=== PATIENT | female | born 1960 | race Caucasian/White ===

== ENCOUNTER 2018-08-26 14:30 | Outpatient (CLI) | payer OTHER ==
[~2018-08-26] VITALS: Ht 162.6 cm; Wt 119.7 kg
[2018-08-26] MEDS ORDERED: LISI-552 PO (14:44)
[2018-08-26] MEDS ORDERED: METF-397 PO (14:44)
[2018-08-26] MEDS ORDERED: PRAV40TA2 PO (14:44)
== END 2018-08-26 14:54 | disposition home or self-care (01) ==
LOC: PREOP 14:30
PROVIDERS: ATTEND Surgery
DX: Z01.818 Encounter for other preprocedural examination (principal)

== ENCOUNTER 2018-08-31 09:17 | Day surgery (SDC) | payer BC, OTHER ==
[~2018-08-31] VITALS: Ht 162.6 cm; Wt 119.7 kg
[~2018-08-31 09:17] MED LIST: LISI-552 PO; METF-397 PO; PRAV40TA2 PO
--- OUTSIDE RECORDS SUMMARY | 2018-08-31 09:21 | XMS REPORT ---
Author Author [facility] Address [address] [place] [address] Care Team Providers Care Trolley Operator Name Role Phone ROBIN RIVEROHANY Unavailable PROBLEMS Type Condition ICD9-CM Code OCU65-NA Code Onset Dates Condition Status SNOMED Code Problem Essential hypertension I10 Active 18538799 Problem Allergic rhinitis, unspecified allergic rhinitis type J30.9 Active 96861412 Problem BMI 45.0-49.9, adult Z68.42 Active 035089404 Problem Acute right-sided low back pain with right-sided sciatica M54.41 Active 642671837 Problem Mixed hyperlipidemia E78.2 Active 363059616 Problem Prediabetes R73.09 Active 4134500 Problem Occult blood positive stool R19.5 Active 16853891 Problem Primary osteoarthritis of left knee M17.12 Active 862795019 ALLERGIES Substance Reaction Event Type Date Status Aspirin Unknown Drug Allergy Nov, Active ENCOUNTERS Encounter Location Date Diagnosis [place] [id number] [place] [address] Nov, Eustachian tube dysfunction, bilateral H69.83 [facility] [id number] [address] Nov, Eustachian tube dysfunction, bilateral H69.83 [facility] [address] [id number], [place] [address] Nov, Occult blood positive stool R19.5 ; Mixed hyperlipidemia E78.2 ; Essential hypertension I10 ; Prediabetes R73.09 and BMI 45.0-49.9, adult Z68.42 [facility] [address] [id number], [place] [address] 9[address] September, Essential hypertension I10 [place] [address] [place] [id number] [place] [address] 83947- 5069 Apr, Essential hypertension I10 ; Mixed hyperlipidemia E78.2 ; Prediabetes R73.09 ; Occult blood positive stool R19.5 and BMI 40.0-44.9, adult Z68.41 [place] [address] [place] [id number] [place] [address]21- 1291 Dec, Acute right-sided low back pain with right-sided sciatica M54.41 [place] [address] [address]- [address] Nov, Essential hypertension I10 [address] [address]- [address] Aug, Essential hypertension I10 ; Mixed hyperlipidemia E78.2 ; Prediabetes R73.09 ; BMI 40.0-44.9, adult Z68.41 ; Weight loss counseling, encounter for Z71.3 and Occult blood positive stool R19.5 [place] [address] [address]- 48[address] Jul, Eustachian tube dysfunction, bilateral H69.[address] [address]- [address] Apr, Well woman exam with routine gynecological exam Z01.[address] [address]- 9316 Mar, [address] [address]- 8802 17 Mar, 2016 Essential hypertension I10 ; Mixed hyperlipidemia E78.2 and Screening for colon cancer Z12.[address] [address]- 1423 14 Mar, 2016 Essential hypertension I10 ; Mixed hyperlipidemia E78.2 and Screening for colon cancer Z12.11 [place] [address] [place] [id number] [place] [address] 29510- 0364 26 Jul, 2015 Essential hypertension I10 ; Acute maxillary sinusitis, recurrence not specified J01.00 ; Mixed hyperlipidemia E78.2 and Allergic rhinitis, unspecified allergic rhinitis type J30.9 [place] [address] [place] [id number] [place] [address] 23621- 9301 May, [place] [address] [address]- 0396 May, Ingrowing right great toenail L60.0 [place] [address] 608[address]- 8916 Apr, Ingrown nail L60.0 [place] [address] 524[address]- 5179 Mar, Ingrowing toenail with infection L60.0 [place] [address] [place] [id number] [place] [address] 98686- 6215 Jan, Hypercalcemia 275.[address] [address]- 0445 Dec, Hypercalcemia 275.42 [place] [address] 98656- 5383 Dec, Acute renal insufficiency 593.9 [place] [address] [place] [id number] [place] [address] 60228- 3934 Nov, [place] [id number] [place] [address] 19899- 5707 Nov, Acute renal insufficiency 593.9 and Prediabetes 790.29 [place] [id number] [place] [address] 79026- 1199 Nov, Other and unspecified hyperlipidemia 272.4 and Essential hypertension, benign 401.1 [place] [id number] [place] [address] 19017- 8571 Oct, Dysuria 788.1 ; Osteoarthritis of left knee 715.96 ; Hyperlipidemia 272.4 ; Essential hypertension, benign 401.1 and Urinary tract infection 599.0 [place] [address], [place] [address] Oct, [facility] [address], [place] [address]- 34[address] 15 Oct, 2014 Other and unspecified hyperlipidemia 272.4 and Essential hypertension, benign 401.1 [facility] [address], [place] [address] 10[address] 14 Aug, 2014 [facility] [address] [facility] [id number], [place] [address] 7434 13 Aug, 2014 [facility] [address] [place] [address] 8440 Jul, [facility] [address], [place] [address] 6[address] Jul, [facility] [address], [place] [address]- 8198 16 Jul, 2014 [facility] [address], [place] [address]- 7890 Jul, [facility] [address], [place] [address]- 4176 Jul, [facility] [address], [place] [address]- 4546 Jul, [facility] [address], [place] [address]- 6682 Jun, [facility] [id number], [place] [address]- 4567 Jun, [facility] [id number], [place] [address]- 0494 May, [facility] [address] [place] [address]- 6809 May, [facility] [id number] [place] [address]- 1786 May, [facility] [place] [facility] [address] [id number] [place] [address]- 0043 May, [facility] [place] [facility] [address] [id number] [place] [address]- 9349 Nov, [facility] [place] [facility] [address] [id number] [place] [address]- 6587 Nov, [facility] [place] [facility] [address] [id number] [place] [address]- 7190 Oct, [facility] [place] [facility] [address] [id number] [place] [address]- 0287 Oct, [facility] [place] [facility] [address] [id number] [place] [address]- 4633 September, [facility] [place] [facility] [address] [id number] [place] [address]- 7403 September, [facility] [place] [facility] [address] [id number] [place] [address]- 8215 September, [facility] [place] [facility] [address] [id number] [place] [address] September, [facility] [place] [facility] [address] [id number] [place] [address]- 5184 September, [facility] [place] [facility] [address] [id number] [place] [address] September, [facility] [place] [facility] [address] [id number] [place] [address]- 6610 September, [facility] [place] [facility] [address] [id number] [place] [address]- 9536 Aug, [facility] [place] [facility] [address] [id number] [place] [address] Aug, [facility] [place] [facility] [address] [id number] [place] [address]- 7269 Aug, [facility] [place] [facility] [address] [id number] [place] [address]- 3944 Aug, [facility] [address] [facility] [id number] [place] [address]- 2420 Aug, [facility] [address] [facility] [id number] [place] [address]- 8447 Aug, [facility] [address] [facility] [id number] [place] [address]- 7342 May, [facility] [address] [facility] [id number] [place] [address]- 9323 May, [facility] [address] [facility] [id number] [place] [address]- 3346 May, [facility] [address] [facility] [id number] [place] [address]- 2517 May, [facility] [id number] [place] [address]- 9541 May, [facility] [address] [facility] [id number], [place] [address]- 7106 May, [facility] [id number], [place] [address]- 9716 Jan, [facility] [address] [facility] [id number], [place] [address]- 7398 Jan, [facility] [address] [facility] [id number], [place] [address]- 8140 Dec, [facility] [address] [facility] [id number], [place] [address]- 5450 Nov, [facility] [address] [facility] [id number], [place] [address]- 4550 Nov, [facility] [address] [facility] [id number], [place] [address]- 3589 Nov, [facility] [address] [facility] [id number], [place] [address]- 8340 Nov, IMMUNIZATIONS No Known Immunizations SOCIAL HISTORY Never Assessed REASON FOR VISIT Blood Pressure--tcuppettRN PLAN OF CARE Activity Details Follow Up 6 Months Reason:HTN VITAL SIGNS Height 65 in 2017-12-18 Weight 273.6 lbs 2017-12-18 Temperature 98.4 degrees Fahrenheit 2017-12-18 Heart Rate 80 bpm 2017-12-18 Respiratory Rate 20 2017-12-18 BMI 45.52 kg/m2 2017-12-18 Blood pressure systolic 128 mmHg 2017-12-18 Blood pressure diastolic 84 mmHg 2017-12-18 MEDICATIONS Medication Instructions Dosage Frequency Start Date End Date Duration Status Pravastatin Sodium 40 mg Orally Once a day 1 tablet 24h 90 days Active Flonase 50 MCG/DOSE Nasally 2 times a day 1 spray in each nostril 12h Active Lisinopril-Hydrochlorothiazide 20-25 MG Orally Once a day 1 tablet 24h 90 days Active Metformin HCl 500 mg Orally 2 times a day 1 tablet with a meal 12h Nov, 30 day(s) Active Cetirizine HCl 10 MG Orally Once a day 1 tablet 24h 30 Not-Taking RESULTS No Results PROCEDURES Procedure Date Ordered Result Body Site COMPREHEN METABOLIC PANEL December 18, 2017 LIPID PANEL December 18, 2017 COMPLETE CBC W/AUTO DIFF WBC December 18, 2017 INSTRUCTIONS MEDICATIONS ADMINISTERED No Known Medications MEDICAL (GENERAL) HISTORY Type Description Date Medical History respiratory disorder-chronic cough Surgical History tonsillectomy 1967 Surgical History tubal ligation 1982 Surgical History dental surgery-teeth removed 1985 Surgical History hysterectomy 1995 Surgical History arthroscopic knee surgery-left knee 1997 Surgical History neuroplasty with transposition of median nerve at carpal tunnel 1995, 1998 Surgical History cholecystectomy Surgical History Left hand trigger finger release 11/2015 Hospitalization History Hospitalization for surgery only
--- OUTSIDE RECORDS SUMMARY | 2018-08-31 09:21 | XMS REPORT ---
Author Author [facility] Address [address] [place] [address] Care Team Providers Care Sales Product Specialist Name Role Phone WEST RIVERO Unavailable PROBLEMS Type Condition ICD9-CM Code SEY62-KW Code Onset Dates Condition Status SNOMED Code Problem Essential hypertension I10 Active 25166753 Problem Allergic rhinitis, unspecified allergic rhinitis type J30.9 Active 61649504 Problem BMI 45.0-49.9, adult Z68.42 Active 617921841 Problem Acute right-sided low back pain with right-sided sciatica M54.41 Active 059499166 Problem Mixed hyperlipidemia E78.2 Active 767761110 Problem Prediabetes R73.09 Active 2599299 Problem Occult blood positive stool R19.5 Active 43803240 Problem Primary osteoarthritis of left knee M17.12 Active 207009033 ALLERGIES No Information ENCOUNTERS Encounter Location Date Diagnosis [place] [address] [address] Nov, Eustachian tube dysfunction, bilateral H69.83 [place] [address] [place] [id number] [place] [address] 62075- 7612 Nov, Eustachian tube dysfunction, bilateral H69.83 [place] [address] [place] [id number] [place] [address] 14072- 2913 Nov, Occult blood positive stool R19.5 ; Mixed hyperlipidemia E78.2 ; Essential hypertension I10 ; Prediabetes R73.09 and BMI 45.0-49.9, adult Z68.42 [facility] [id number] [place] [address] 26498- 5213 September, Essential hypertension I10 [place] [address] [address]- 0461 Apr, Essential hypertension I10 ; Mixed hyperlipidemia E78.2 ; Prediabetes R73.09 ; Occult blood positive stool R19.5 and BMI 40.0-44.9, adult Z68.41 [place] [id number] [place] [address] 09138- 8874 Dec, Acute right-sided low back pain with right-sided sciatica M54.41 [place] [address] [address]- 9721 Nov, Essential hypertension I10 [place] [address] 18842- 9434 Aug, Essential hypertension I10 ; Mixed hyperlipidemia E78.2 ; Prediabetes R73.09 ; BMI 40.0-44.9, adult Z68.41 ; Weight loss counseling, encounter for Z71.3 and Occult blood positive stool R19.[address] [address]- 6978 Jul, Eustachian tube dysfunction, bilateral H69.[address] 94[address]- 8950 Apr, Well woman exam with routine gynecological exam Z01.419 [place] [id number] [place] [address] 14417- 0329 Mar, [address] [address]- 6294 Mar, Essential hypertension I10 ; Mixed hyperlipidemia E78.2 and Screening for colon cancer Z12.11 [place] [address] [place] [address] [id number] [place] [address] 75897- 9322 14 Mar, 2016 Essential hypertension I10 ; Mixed hyperlipidemia E78.2 and Screening for colon cancer Z12.11 [place] [address] [place] [id number] [place] [address] 07249- 4652 26 Jul, 2015 Essential hypertension I10 ; Acute maxillary sinusitis, recurrence not specified J01.00 ; Mixed hyperlipidemia E78.2 and Allergic rhinitis, unspecified allergic rhinitis type J30.9 [place] [address] [place] [id number] [place] [address] 66217- 3694 May, [place] [address] [place] [id number] [place] [address] 49566- 5897 May, Ingrowing right great toenail L60.0 [place] [address] [address]45- 8525 Apr, Ingrown nail L60.0 [place] [address] [place] [id number] [place] [address] 41925- 2462 Mar, Ingrowing toenail with infection L60.0 [place] [address] 37575- 9919 Jan, Hypercalcemia 275.[address] 66630- 1353 Dec, Hypercalcemia 275.42 [place] [address] 23477- 8724 Dec, Acute renal insufficiency 593.9 [place] [address] 41184- 0492 Nov, [place] [address] 58469- 1945 Nov, Acute renal insufficiency 593.9 and Prediabetes 790.29 [place] [address] [id number] [place] [address] 00253- 0856 Nov, Other and unspecified hyperlipidemia 272.4 and Essential hypertension, benign 401.[address] 7[address]27- 0492 Oct, Dysuria 788.1 ; Osteoarthritis of left knee 715.96 ; Hyperlipidemia 272.4 ; Essential hypertension, benign 401.1 and Urinary tract infection 599.0 [place] [address] [place] [id number] [place] [address] 55280- 3456 Oct, [facility] [address] [address]- 4640 Oct, Other and unspecified hyperlipidemia 272.4 and Essential hypertension, benign 401.1 [facility] [address] [id number] 1110 14 Aug, 2014 [facility] [address] [facility] [id number] [place] [address] 48558- 2024 Aug, [facility] [address] [facility] [id number] [place] [address]- 3642 Jul, [facility] [address] [place] [address] 76861- 9065 Jul, [facility] [address] 7104 16 Jul, 2014 [facility] [address] [address]- 4756 Jul, [facility] [address] [address]- 1657 Jul, [facility] [address] [address]- 0426 Jul, [facility] [address] [address]- 1212 Jun, [facility] [id number] [address]- 7408 Jun, [facility] [id number] [address]- 4324 May, [facility] [address]- 5786 May, [facility] [id number] 8931 May, [facility] [address] [address]- 1739 May, [facility] [place] [facility] [address] [id number] [place] [address]- 2577 Nov, [facility] [place] [facility] [address] [id number] [place] [address]- 5647 Nov, [facility] [place] [facility] [address] [id number] [place] [address]- 2722 Oct, [facility] [place] [facility] [address] [id number] [place] [address]- 6376 Oct, [facility] [place] [facility] [address] [id number] [place] [address]- 0959 September, [facility] [place] [facility] [address] [id number] [place] [address]- 8134 September, [facility] [place] [facility] [address] [id number] [place] [address]- 4982 September, [facility] [place] [facility] [address] [id number] [place] [address]- 1770 September, [facility] [place] [facility] [address] [id number] [place] [address]- 3064 September, [facility] [place] [facility] [address] [id number] [place] [address]- 3123 September, [facility] [place] [facility] [address] [id number] [place] [address]- 5403 September, [facility] [place] [facility] [address] [id number] [place] [address]- 7165 Aug, [facility] [place] [facility] [address] [id number] [place] [address]- 1924 Aug, [facility] [place] [facility] [address] [id number] [place] [address]- 3770 Aug, [facility] [place] [facility] [address] [id number] [place] [address]- 7802 Aug, [facility] [place] [facility] [address] [id number] [place] [address]- 0915 Aug, [facility] [address] [facility] [id number] [place] [address] Aug, [facility] [address] [facility] [id number] [place] [address] May, [facility] [address] [facility] [id number] [place] 1469 May, [facility] [address] [facility] [id number] [place] [address]- 7182 May, [facility] [address] [facility] [id number] [place] [address]323 May, [facility] [address] [facility] [id number] [place] [address]- 9236 May, [facility] [id number] [address]- 6069 May, [facility] [address] [facility] [id number] [place] [address]- 5054 Jan, [facility] [id number] [address]- 1182 Jan, [facility] [id number] [address]- 2329 Dec, [facility] [id number] [address]- 8812 Nov, [facility] [address] [facility] [id number] [place] [address]- 6148 Nov, [facility] [id number] [address]- 5653 Nov, [facility] [address] [facility] [id number] [place] 7885 Nov, IMMUNIZATIONS No Known Immunizations SOCIAL HISTORY Never Assessed REASON FOR VISIT Refill Request PLAN OF CARE VITAL SIGNS MEDICATIONS Medication Instructions Dosage Frequency Start Date End Date Duration Status Flonase 50 MCG/DOSE Nasally 2 times a day 1 spray in each nostril 12h Active RESULTS No Results PROCEDURES No Known procedures INSTRUCTIONS MEDICATIONS ADMINISTERED No Known Medications MEDICAL [...]
--- OUTSIDE RECORDS SUMMARY | 2018-08-31 09:21 | XMS REPORT ---
Author Author MATWEST [facility] Address [address] [place] [address] Care Team Providers Care Skilled Trades Teacher Name Role Phone WEST RIVERO Unavailable PROBLEMS Type Condition ICD9-CM Code [id number] Code Onset Dates Condition Status SNOMED Code Problem Essential hypertension I10 Active 98866663 Problem Allergic rhinitis, unspecified allergic rhinitis type J30.9 Active 20765152 Problem BMI 45.0-49.9, adult Z68.42 Active 622849532 Problem Acute right-sided low back pain with right-sided sciatica M54.41 Active 058827870 Problem Mixed hyperlipidemia E78.2 Active 723556366 Problem Prediabetes R73.09 Active 4038373 Problem Occult blood positive stool R19.5 Active 73344612 Problem Primary osteoarthritis of left knee M17.12 Active 686635696 ALLERGIES No Information ENCOUNTERS Encounter Location Date Diagnosis [place] [address] [address] Nov, Eustachian tube dysfunction, bilateral H69.83 [place] [address] [place] [id number] [place] [address] Nov, Eustachian tube dysfunction, bilateral H69.83 [place] [address] [place] [id number] [place] [address] Nov, Occult blood positive stool R19.5 ; Mixed hyperlipidemia E78.2 ; Essential hypertension I10 ; Prediabetes R73.09 and BMI 45.0-49.9, [address]68[address] [facility] [address] [place] [id number] [place] [address] September, Essential hypertension I10 [place] [address] [address] Apr, Essential hypertension I10 ; Mixed hyperlipidemia E78.2 ; Prediabetes R73.09 ; Occult blood positive stool R19.5 and BMI 40.0-44.9, adult Z68.41 [place] [address] [place] [id number] [place] [address] Dec, Acute right-sided low back pain with right-sided sciatica M54.41 [place] [address] [address] Nov, Essential hypertension I10 [place] [address] [address] Aug, Essential hypertension I10 ; Mixed hyperlipidemia E78.2 ; Prediabetes R73.09 ; BMI 40.0-44.9, adult Z68.41 ; Weight loss counseling, encounter for Z71.3 and Occult blood positive stool R19.[address] [address] Jul, Eustachian tube dysfunction, bilateral H69.[address] [address]- [address] Apr, Well woman exam with routine gynecological exam Z01.419 [place] [id number] [place] [address] 2416 Mar, [address] [address] Mar, Essential hypertension I10 ; Mixed hyperlipidemia E78.2 and Screening for colon cancer Z12.11 [place] [address] [place] [id number] [place] [address]- 87[address] 14 Mar, 2016 Essential hypertension I10 ; Mixed hyperlipidemia E78.2 and Screening for colon cancer Z12.11 [place] [address] [place] [id number] [place] [address]- [address] 26 Jul, 2015 Essential hypertension I10 ; Acute maxillary sinusitis, recurrence not specified J01.00 ; Mixed hyperlipidemia E78.2 and Allergic rhinitis, unspecified allergic rhinitis type J30.9 [place] [address] [place] [id number] [place] [address]67- [address] May, [place] [address] [place] [id number] [place] [address]- [address] May, Ingrowing right great toenail L60.0 [place] [address] [address]- [address] Apr, Ingrown nail L60.0 [place] [address] [place] [id number] [place] [address]- [address] Mar, Ingrowing toenail with infection L60.0 [place] [address] [address]- [address] Jan, Hypercalcemia [address] [address]- [address] Dec, Hypercalcemia 275.42 [place] [address] [address]- [address] Dec, Acute renal insufficiency 593.9 [place] [address] [address]- [address] Nov, [place] [address] [address]- [address] Nov, Acute renal insufficiency 593.9 and Prediabetes 790.29 [place] [address] [place] [id number] [place] [address]99- 9361 Nov, Other and unspecified hyperlipidemia 272.4 and Essential hypertension, benign 401.[address] [address]- [address] Oct, Dysuria 788.1 ; Osteoarthritis of left knee 715.96 ; Hyperlipidemia 272.4 ; Essential hypertension, benign 401.1 and Urinary tract infection 599.0 [place] [address] [place] [id number] [place] [address] Oct, [facility] [address] [address] Oct, Other and unspecified hyperlipidemia 272.4 and Essential hypertension, benign 401.1 [facility] [address] [id number] [address] 14 Aug, 2014 [facility] [address] [facility] [id number] [place] [address]181- 6[address] Aug, [facility] [address] [facility] [id number] [address] Jul, [facility] [address] [place] [address] Jul, [facility] [id number] [address] 16 Jul, 2014 [facility] [id number] [address] Jul, [facility] [id number] [address] Jul, [facility] [id number] [address] Jul, [facility] [id number] [address] Jun, [facility] [address] [place] [id number] [address] Jun, [facility] [address] [place] [id number] [address] May, [facility] [id number] May, [facility] [address] [place] [id number] May, [facility] [address] [address] May, [facility] [place] [facility] [address] [id number] [place] [address]- 95[address] Nov, [facility] [place] [facility] [address] [id number] [place] [address]- 3472 Nov, [facility] [place] [facility] [address] [id number] [place] [address]- 3491 Oct, [facility] [place] [facility] [address] [id number] [place] [address]- 5937 Oct, [facility] [place] [facility] [address] [id number] [place] [address]- 0623 September, [facility] [place] [facility] [address] [id number] [place] [address]- 0257 September, [facility] [place] [facility] [address] [id number] [place] [address]- 4248 September, [facility] [place] [facility] [address] [id number] [place] [address]- 8964 September, [facility] [place] [facility] [address] [id number] [place] [address]- 1060 September, [facility] [place] [facility] [address] [id number] [place] [address]- 9529 September, [facility] [place] [facility] [address] [id number] [place] [address]- 0856 September, [facility] [place] [facility] [address] [id number] [place] [address]- 8150 Aug, [facility] [place] [facility] [address] [id number] [place] [address]- 6998 Aug, [facility] [place] [facility] [address] [id number] [place] [address]- 5093 Aug, [facility] [place] [facility] [address] [id number] [place] [address]- 2593 Aug, [facility] [place] [facility] [address] [id number], [place] [address] Aug, [facility] [address] [facility] [id number] Aug, [facility] [address] [facility] [id number] [place] May, [facility] [address] [facility] [id number]95 May, [facility] [address] [facility] [id number] [place] [address] May, [facility] [address] [facility] [id number] [place] May, [facility] [address] [facility] [id number] [address]- [address] May, [facility] [address] [place] [id number] [address] May, [facility] [address] [facility] [id number] [address] Jan, [facility] [address] [place] [id number] [address] Jan, [facility] [address] [place] [id number] [address]51 Dec, [facility] [address] [place] [id number] [address]44 Nov, [facility] [address] [facility] [id number] [address]- [address] Nov, [facility] [address] [place] [id number] [address] Nov, [facility] [address] [facility] [id number] [address] Nov, IMMUNIZATIONS No Known Immunizations SOCIAL HISTORY [...]
--- OUTSIDE RECORDS SUMMARY | 2018-08-31 09:22 | XMS REPORT ---
Author Author WEST RIVERO [employer] Address Unknown Phone Unavailable Care Team Providers Care Tile Machine Operator Name Role Phone WEST RIVERO CP Unavailable Allergies, Adverse Reactions, Alerts Substance Reaction Event Type Aspirin Info Not Available Drug Allergy Problems Problem Type Condition Code Onset Dates Condition Status Assessment Screening for colon cancer Z12.11 Active Problem Mixed hyperlipidemia E78.2 Active Problem Primary osteoarthritis of left knee M17.12 Active Problem Essential hypertension I10 Active Assessment Essential hypertension I10 Active Assessment Mixed hyperlipidemia E78.2 Active Problem Allergic rhinitis, unspecified allergic rhinitis type J30.9 Active Problem Prediabetes R73.09 Active Medications Medication Code System Code Instructions Start Date End Date Status Dosage Lisinopril-Hydrochlorothiazide [facility] [address]-08 20-25 MG Orally Once a day 1 tablet Pravastatin Sodium [facility] [address]-44 40 MG Orally Once a day 1 tablet Procedures Procedure Coding System Code Date Office Visit, Est Pt., Level 3 CPT-4 63452 Mar 14, 2016 Vital Signs Date/Time: Mar 14, 2016 Cardiac Monitoring Heart Rate 88 bpm Weight 268.1 lbs Height 65 in BMI 44.61 Index Blood Pressure Diastolic 72 mmHg Blood Pressure Systolic 126 mmHg Results No Known Results Summary Purpose [employer]Clinical[employer] Submission
--- OUTSIDE RECORDS SUMMARY | 2018-08-31 09:22 | XMS REPORT ---
Author Author FELECIA VIZCARRA Organization [employer] Address Unknown Phone Unavailable Care Team Providers Care Emergency Planner Name Role Phone FELECIA VIZCARRA CP Unavailable Allergies, Adverse Reactions, Alerts Substance Reaction Event Type Aspirin Info Not Available Drug Allergy Problems Problem Type Condition Code Onset Dates Condition Status Problem Mixed hyperlipidemia E78.2 Active Problem Primary osteoarthritis of left knee M17.12 Active Problem Essential hypertension I10 Active Assessment Well woman exam with routine gynecological exam Z01.419 Active Problem Allergic rhinitis, unspecified allergic rhinitis type J30.9 Active Problem Prediabetes R73.09 Active Medications Medication Code System Code Instructions Start Date End Date Status Dosage Lisinopril-Hydrochlorothiazide [facility] [address]-48 20-25 MG Orally Once a day 1 tablet Pravastatin Sodium [facility] [address]-21 40 mg Orally Once a day 1 tablet Procedures Procedure Coding System Code Date Preventive Care Est Pt. Age 40-64 CPT-4 44780 Apr 14, 2016 Vital Signs Date/Time: Apr 14, 2016 Cardiac Monitoring Heart Rate 100 bpm Weight 269 lbs Height 65 in BMI 44.76 Index Blood Pressure Diastolic 76 mmHg Blood Pressure Systolic 118 mmHg Results No Known Results Summary Purpose [employer]Works Submission
--- OUTSIDE RECORDS SUMMARY | 2018-08-31 09:22 | XMS REPORT ---
Author Author WEST RIVERO [facility] [employer] Address Unknown Phone Unavailable Care Team Providers Care Ceo Ziff Davis Name Role Phone WEST RIVERO CP Unavailable Allergies No Known Allergies Problems Problem Type Condition Code Onset Dates Condition Status Problem Mixed hyperlipidemia E78.2 Active Problem Primary osteoarthritis of left knee M17.12 Active Problem Essential hypertension I10 Active Problem Allergic rhinitis, unspecified allergic rhinitis type J30.9 Active Problem Prediabetes R73.09 Active Medications No Known Medications Results No Known Results Summary Purpose [employer]ClinicalWorks Submission
--- OUTSIDE RECORDS SUMMARY | 2018-08-31 09:22 | XMS REPORT ---
Author Author MIRELLA NYE [facility] Address [address] [place] [address] Care Team Providers Care Aligning Checker Name Role Phone MIRELLA NYE Unavailable PROBLEMS Type Condition ICD9-CM Code [id number] Code Onset Dates Condition Status SNOMED Code Problem Allergic rhinitis, unspecified allergic rhinitis type J30.9 Active 75845233 Problem Acute right-sided low back pain with right-sided sciatica M54.41 Active 988808531 Problem Occult blood positive stool R19.5 Active 81715036 Problem Prediabetes R73.09 Active 6408506 Problem Essential hypertension I10 Active 10545616 Problem Primary osteoarthritis of left knee M17.12 Active 641557875 Problem Mixed hyperlipidemia E78.2 Active 370748179 ALLERGIES Substance Reaction Event Type Date Status Aspirin Unknown Drug Allergy Jul, Active SOCIAL HISTORY Never Assessed PLAN OF CARE Activity Details Follow Up prn Reason: VITAL SIGNS Height 65 in 2016-07-23 Weight 267.3 lbs 2016-07-23 Temperature 98.1 degrees Fahrenheit 2016-07-23 Heart Rate 96 bpm 2016-07-23 Respiratory Rate 18 2016-07-23 BMI 44.48 kg/m2 2016-07-23 Blood pressure systolic 110 mmHg 2016-07-23 Blood pressure diastolic 80 mmHg 2016-07-23 MEDICATIONS Medication Instructions Dosage Frequency Start Date End Date Duration Status Pravastatin Sodium 40 mg Orally Once a day 1 tablet 24h Active Lisinopril-Hydrochlorothiazide 20-25 MG Orally Once a day 1 tablet 24h 90 days Active Flonase 50 MCG/DOSE Nasally 2 times a day 1 spray in each nostril 12h Active Meclizine HCl 25 MG Orally every 6 hours, PRN 1 tablet as needed Jul, Active RESULTS No Results PROCEDURES No Known procedures IMMUNIZATIONS No Known Immunizations MEDICAL (GENERAL) HISTORY Type Description Date Medical History respiratory disorder-chronic cough Surgical History tonsillectomy 1967 Surgical History tubal ligation 1982 Surgical History dental surgery-teeth removed 1985 Surgical History hysterectomy 1995 Surgical History arthroscopic knee surgery-left knee 1998 Surgical History neuroplasty with transposition of median nerve at carpal tunnel 1995, 1998 Surgical History cholecystectomy Surgical History Left hand trigger finger release 11/2015 Hospitalization History Hospitalization for surgery only
--- OUTSIDE RECORDS SUMMARY | 2018-08-31 09:22 | XMS REPORT ---
Author Author WEST RIVERO [facility] e[employer] Address Unknown Phone Unavailable Care Team Providers Care Dumb Waiter Operator Name Role Phone WEST RIVERO Unavailable Allergies No Known Allergies Problems Problem Type Condition Code Onset Dates Condition Status Problem Mixed hyperlipidemia E78.2 Active Problem Primary osteoarthritis of left knee M17.12 Active Problem Essential hypertension I10 Active Problem Allergic rhinitis, unspecified allergic rhinitis type J30.9 Active Problem Prediabetes R73.09 Active Medications Medication Code System Code Instructions Start Date End Date Status Dosage Pravastatin Sodium [facility] [address]-70 40 mg Orally Once a day 1 tablet Results No Known Results Summary Purpose eClinicalWorks Submission
--- OUTSIDE RECORDS SUMMARY | 2018-08-31 09:22 | XMS REPORT ---
Author Author WEST RIVERO [facility] e[employer] Address Unknown Phone Unavailable Care Team Providers Care Addresser Name Role Phone WEST RIVERO CP Unavailable Allergies, Adverse Reactions, Alerts Substance Reaction Event Type Aspirin Info Not Available Drug Allergy Problems Problem Type Condition Code Onset Dates Condition Status Problem Mixed hyperlipidemia E78.2 Active Problem Primary osteoarthritis of left knee M17.12 Active Problem Essential hypertension I10 Active Assessment Ingrowing right great toenail L60.0 Active Problem Allergic rhinitis, unspecified allergic rhinitis type J30.9 Active Problem Prediabetes R73.09 Active Medications Medication Code System Code Instructions Start Date End Date Status Dosage Cetirizine HCl [facility] [address]-58 10 MG Orally Once a day 1 tablet Pravastatin Sodium [facility] [address]-83 40 MG Orally Once a day 1 tablet Flonase [facility] [address]-16 50 MCG/DOSE Nasally 2 times a day 1 spray in each nostril Lisinopril-Hydrochlorothiazide [facility] [address]-65 20-25 MG Orally Once a day 1 tablet Procedures Procedure Coding System Code Date REMOVAL OF NAIL BED CPT-4 97632 May 09, 2015 Vital Signs Date/Time: May 09, 2015 Temperature 98.7 F Weight 270.6 lbs Height 65 in BMI 45.03 Index Blood Pressure Diastolic 76 mmHg Blood Pressure Systolic 128 mmHg Cardiac Monitoring Heart Rate 90 bpm Results Name Result Date Reference Range Unit Abnormality Flag NAIL REMOVAL PERMANENT (PARTIAL OR COMPLETE) Summary Purpose eClinicalWorks Submission
--- OUTSIDE RECORDS SUMMARY | 2018-08-31 09:22 | XMS REPORT ---
Author Author [facility] Address [address] [place] [address] Care Team Providers Care Conveyor Feeder Name Role Phone WETS RIVERO Unavailable PROBLEMS Type Condition ICD9-CM Code LSD97-IW Code Onset Dates Condition Status SNOMED Code Problem Essential hypertension I10 Active 94787226 Problem Allergic rhinitis, unspecified allergic rhinitis type J30.9 Active 10801174 Problem BMI 45.0-49.9, adult Z68.42 Active 744672230 Problem Acute right-sided low back pain with right-sided sciatica M54.41 Active 100724599 Problem Mixed hyperlipidemia E78.2 Active 511676862 Problem Prediabetes R73.09 Active 7751044 Problem Occult blood positive stool R19.5 Active 16739413 Problem Primary osteoarthritis of left knee M17.12 Active 489312281 ALLERGIES No Information ENCOUNTERS Encounter Location Date Diagnosis [place] [address] [address] Nov, Eustachian tube dysfunction, bilateral H69.83 [place] [address] [place] [id number] [place] [address] 14477- 4540 Nov, Eustachian tube dysfunction, bilateral H69.83 [place] [address] [place] [id number] [place] [address] 64357- 8388 Nov, Occult blood positive stool R19.5 ; Mixed hyperlipidemia E78.2 ; Essential hypertension I10 ; Prediabetes R73.09 and BMI 45.0-49.9, adult Z68.42 [facility] [address] [id number] [place] [address] 77576- 2764 September, Essential hypertension I10 [place] [address] [address]43- 7921 Apr, Essential hypertension I10 ; Mixed hyperlipidemia E78.2 ; Prediabetes R73.09 ; Occult blood positive stool R19.5 and BMI 40.0-44.9, adult Z68.41 [place] [address] [id number] [place] [address] 00859- 5404 Dec, Acute right-sided low back pain with right-sided sciatica M54.41 [place] [address] 72757- 8317 Nov, Essential hypertension I10 [place] [address] 42010- 3940 Aug, Essential hypertension I10 ; Mixed hyperlipidemia E78.2 ; Prediabetes R73.09 ; BMI 40.0-44.9, adult Z68.41 ; Weight loss counseling, encounter for Z71.3 and Occult blood positive stool R19.[address] [address]- 4812 Jul, Eustachian tube dysfunction, bilateral H69.[address] 91427- 0160 Apr, Well woman exam with routine gynecological exam Z01.419 [place] [id number] [place] [address] 82251- 4989 Mar, [address] [address]- 5275 Mar, Essential hypertension I10 ; Mixed hyperlipidemia E78.2 and Screening for colon cancer Z12.11 [place] [address] [place] [id number] [place] [address] 97754- 7022 14 Mar, 2016 Essential hypertension I10 ; Mixed hyperlipidemia E78.2 and Screening for colon cancer Z12.11 [place] [address] [place] [id number] [place] [address] 25786- 9923 26 Jul, 2015 Essential hypertension I10 ; Acute maxillary sinusitis, recurrence not specified J01.00 ; Mixed hyperlipidemia E78.2 and Allergic rhinitis, unspecified allergic rhinitis type J30.9 [place] [address] [place] [id number] [place] [address] 17243- 1405 May, [place] [address] [place] [id number] [place] [address] 88219- 8098 May, Ingrowing right great toenail L60.0 [place] [address] 93196- 7761 Apr, Ingrown nail L60.0 [place] [address] [id number] [place] [address] 50415- 5768 Mar, Ingrowing toenail with infection L60.0 [place] [address] 66120- 2575 Jan, Hypercalcemia 275.[address] 02773- 2865 Dec, Hypercalcemia 275.42 [place] [address] 49940- 8788 Dec, Acute renal insufficiency 593.9 [place] [address] 77709- 3688 Nov, [place] [address] 11542- 6409 Nov, Acute renal insufficiency 593.9 and Prediabetes 790.29 [place] [address] [place] [id number] [place] [address] 96018- 6360 Nov, Other and unspecified hyperlipidemia 272.4 and Essential hypertension, benign 401.[address] 60637- 1156 Oct, Dysuria 788.1 ; Osteoarthritis of left knee 715.96 ; Hyperlipidemia 272.4 ; Essential hypertension, benign 401.1 and Urinary tract infection 599.0 [place] [address] [place] [id number] [place] [address] 41197- 0596 Oct, [facility] [address] [address]- 4675 Oct, Other and unspecified hyperlipidemia 272.4 and Essential hypertension, benign 401.1 [facility] [address] [id number] 2[address] 14 Aug, 2014 [facility] [address] [facility] [id number] [place] [address] 66824- 9686 Aug, [facility] [address] [facility] [id number] [address]- 7915 Jul, [facility] [address] [place] [address] 31561- 6634 Jul, [facility] [address] 8037 16 Jul, 2014 [facility] [address] [address]- 2006 Jul, [facility] [address] [address]- 3764 Jul, [facility] [address] [address]- 1299 Jul, [facility] [address] [address]- 4277 Jun, [facility] [address] [place] [id number] [address]- 5818 Jun, [facility] [address] [place] [id number] [address]- 9222 May, [facility] [address] [address] May, [facility] [address] [place] [id number] 0194 May, [facility] [address] [address]- 8228 May, [facility] [place] [facility] [address] [id number] [place] [address]- 4845 Nov, [facility] [place] [facility] [address] [id number] [place] [address]- 4741 Nov, [facility] [place] [facility] [address] [id number] [place] [address]- 8497 Oct, [facility] [place] [facility] [address] [id number] [place] [address]- 2522 Oct, [facility] [place] [facility] [address] [id number] [place] [address]- 2856 September, [facility] [place] [facility] [address] [id number] [place] [address]- 3856 September, [facility] [place] [facility] [address] [id number] [place] [address]- 7100 September, [facility] [place] [facility] [address] [id number] [place] [address]- 5715 September, [facility] [place] [facility] [address] [id number] [place] [address]- 1813 September, [facility] [place] [facility] [address] [id number] [place] [address]- 2082 September, [facility] [place] [facility] [address] [id number] [place] [address]- 3164 September, [facility] [place] [facility] [address] [id number] [place] [address]- 0522 Aug, [facility] [place] [facility] [address] [id number] [place] [address]- 3332 Aug, [facility] [place] [facility] [address] [id number] [place] [address]- 8623 Aug, [facility] [place] [facility] [address] [id number] [place] [address]- 8834 Aug, [facility] [place] [facility] [address] [id number] [address]- 5965 Aug, [facility] [address] [facility] [id number] 4324 Aug, [facility] [address] [facility] [id number] [place] 3317 May, [facility] [address] [facility] [id number] 1826 May, [facility] [address] [facility] [id number] [place] [address]- 9975 May, [facility] [address] [facility] [id number] [place] 7488 May, [facility] [address] [facility] [id number][place] [address]- 6696 May, [facility] [address] [place] [id number] [address]- 1133 May, [facility] [address] [facility] [id number], [place] [address]- 5707 Jan, [facility] [address] [place] [id number] [address]- 7941 Jan, [facility] [address] [place] [id number] [address]- 6349 Dec, [facility] [address] [place] [id number] [address]- 0772 Nov, [facility] [address] [facility] [id number] [address]- 4919 Nov, [facility] [address] [place] [id number] [address]- 7415 Nov, [facility] [address] [facility] [id number]- 7073 Nov, IMMUNIZATIONS No Known Immunizations SOCIAL HISTORY Never Assessed REASON FOR VISIT Refill request PLAN OF CARE VITAL SIGNS MEDICATIONS Medication Instructions Dosage Frequency Start Date End Date Duration Status Lisinopril-Hydrochlorothiazide 20-25 MG Orally Once a day 1 tablet 24h 90 days Active RESULTS No Results PROCEDURES No Known [...]
--- OUTSIDE RECORDS SUMMARY | 2018-08-31 09:22 | XMS REPORT ---
Author Author [facility] Address [address] [place] [address] Care Team Providers Care Time Study Observer Name Role Phone WEST RIVERO Unavailable PROBLEMS Type Condition ICD9-CM Code DJD26-LZ Code Onset Dates Condition Status SNOMED Code Problem Essential hypertension I10 Active 10623673 Problem Allergic rhinitis, unspecified allergic rhinitis type J30.9 Active 85066434 Problem Acute right-sided low back pain with right-sided sciatica M54.41 Active 497325585 Problem Occult blood positive stool R19.5 Active 25965378 Problem Mixed hyperlipidemia E78.2 Active 364227496 Problem Prediabetes R73.09 Active 7814857 Problem Primary osteoarthritis of left knee M17.12 Active 964748237 Problem BMI 40.0-44.9, adult Z68.41 Active 424726379 ALLERGIES No Information ENCOUNTERS Encounter Location Date Diagnosis [place] [address] [place] [address] 38491- 6169 Apr, Essential hypertension I10 ; Mixed hyperlipidemia E78.2 ; Prediabetes R73.09 ; Occult blood positive stool R19.5 and BMI 40.0-44.9, adult Z68.41 [place] [address] [place] [address] 56543- 2225 Dec, Acute right-sided low back pain with right-sided sciatica M54.41 [place] [address] [place] [address] 38931- 2646 Nov, Essential hypertension I10 [place] [address] [place] [address] 50566- 0571 Aug, Essential hypertension I10 ; Mixed hyperlipidemia E78.2 ; Prediabetes R73.09 ; BMI 40.0-44.9, adult Z68.41 ; Weight loss counseling, encounter for Z71.3 and Occult blood positive stool R19.5 [place] [address] [place] [id number] [place] [address] 75009- 1241 Jul, Eustachian tube dysfunction, bilateral H69.83 [place] [address] 8[address]99- 4013 14 Apr, 2016 Well woman exam with routine gynecological exam Z01.419 [place] [address] 22096- 7598 Mar, [place] [address] 62181- 4204 17 Mar, 2016 Essential hypertension I10 ; Mixed hyperlipidemia E78.2 and Screening for colon cancer Z12.11 [place] [address] 02811- 4056 14 Mar, 2016 Essential hypertension I10 ; Mixed hyperlipidemia E78.2 and Screening for colon cancer Z12.11 [place] [address] 81834- 7311 26 Jul, 2015 Essential hypertension I10 ; Acute maxillary sinusitis, recurrence not specified J01.00 ; Mixed hyperlipidemia E78.2 and Allergic rhinitis, unspecified allergic rhinitis type J30.9 [place] [address] [place] [id number] [place] [address] 90091- 7973 May, [place] [address] 61773- 9501 May, Ingrowing right great toenail L60.0 [place] [address] [place] [id number] [place] [address] 47002- 0917 Apr, Ingrown nail L60.0 [place] [address] 28605- 0484 Mar, Ingrowing toenail with infection L60.0 [place] [address] 60040- 8952 Jan, Hypercalcemia 275.42 [facility] [address], [place] [address]- 1902 Dec, Hypercalcemia 275.42 [facility] [address], [place] [address]- 4262 10 Dec, 2014 Acute renal insufficiency 593.9 [facility] [address] [place] [address] 83134- 3810 Nov, [facility] [address] [place] [id number] [place] [address] 71155- 9718 Nov, Acute renal insufficiency 593.9 and Prediabetes 790.29 [place] [address] [place] [id number] [place] [address] 56151- 5434 Nov, Other and unspecified hyperlipidemia 272.4 and Essential hypertension, benign 401.1 [place] [address] [place] [address] 38076- 7543 Oct, Dysuria 788.1 ; Osteoarthritis of left knee 715.96 ; Hyperlipidemia 272.4 ; Essential hypertension, benign 401.1 and Urinary tract infection 599.0 [facility] [address], [place] [address]- 9559 Oct, [facility] [address], [place] [address]- 6137 Oct, Other and unspecified hyperlipidemia 272.4 and Essential hypertension, benign 401.1 [facility] [address], [place] [address]- 6083 Aug, [facility] [address], [place] [address]- 8834 Aug, [facility] [address] 2265 Jul, [facility] [address], [place] [address]- 5182 Jul, [facility] [address] [place] [id number] [address]- 8615 Jul, 2014 [facility] [place] [facility] [address] [id number] [place] [address]- 1816 Jul, 2014 [facility] [place] [facility] [address] [id number] [place] [address]- 1926 Jul, 2014 [facility] [place] [facility] [address] [id number] [place] [address]- 5336 Jul, 2014 [facility] [place] [facility] [address] [id number] [place] [address]- 3443 Jun, [facility] [place] [facility] [address] [id number] [place] [address]- 4251 Jun, [facility] [place] [facility] [address] [id number] [place] [address]- 0772 May, [facility] [place] [facility] [address] [id number] [place] [address]- 5682 May, [facility] [place] [facility] [address] [id number] [place] [address]- 9767 May, [facility] [place] [facility] [address] [id number] [place] [address]- 8006 May, [facility] [place] [facility] [address] [id number] [place] [address]- 3085 Nov, [facility] [place] [facility] [address] [id number] [place] [address]- 1578 Nov, [facility] [place] [facility] [address] [id number] [place] [address]- 4765 Oct, [facility] [place] [facility] [address] [id number] [place] [address]- 6306 Oct, [facility] [place] [facility] [address] [id number] [place] [address]- 6906 September, [facility] [place] [facility] [address] [id number] [place] [address]- 4616 September, [facility] [address] [id number] [place] [address]- 6433 September, [facility] [place] [facility] [address] [id number] [place] [address]- 2413 September, [facility] [place] [facility] [address] [id number] [place] 1471 September, [facility] [place] [facility] [address] [id number] [place] [address]- 1161 September, [facility] [place] [facility] [address] [id number] [place] [address]- 4659 September, [facility] [place] [facility] [address] [id number] [place] [address]- 2433 Aug, [facility] [place] [facility] [address] [id number] [place] [address]- 8055 Aug, [facility] [place] [facility] [address] [id number] [place] [address]- 4382 Aug, [facility] [place] [facility] [address] [id number] [place] [address]- 5968 Aug, [facility] [place] [facility] [address] [id number] [place] [address]- 3115 Aug, [facility] [place] [facility] [address] [id number] [place] [address]- 4058 Aug, [facility] [place] [facility] [address] [id number], [place] [address]- 2337 May, [facility] [place] [facility] [address] [id number] [place] [address]- 5281 May, [facility] [place] [facility] [address] [id number] [place] [address]- 6911 May, [facility] [place] [facility] [address] [id number] [place] [address]- 2119 May, [facility] [place] [facility] [address] [facility] [id number], [place] [address]- 2546 May, [facility] [address] [place] [id number], [place] [address] 2546 May, [facility] [address] [id number], [place] [address]- 2546 Jan, [facility] [address], [place] [address]- 2546 Jan, [facility] [address], [place] [address]- 2546 Dec, [facility] [address], [place] [address]- 4176 Nov, [facility] [address], [place] [address]- 2546 Nov, [facility] [address], [place] [address] 2546 Nov, [facility] [address] [place] [id number], [place] [address] 2546 Nov, IMMUNIZATIONS No Known Immunizations SOCIAL HISTORY [...]
--- OUTSIDE RECORDS SUMMARY | 2018-08-31 09:22 | XMS REPORT ---
Author Author WEST RIVERO [facility] eClinical[employer] Address Unknown Phone Unavailable Care Team Providers Care Shroud Line Tier Name Role Phone WEST RIVERO CP Unavailable Allergies, Adverse Reactions, Alerts Substance Reaction Event Type Aspirin Info Not Available Drug Allergy Problems Problem Type Condition Code Onset Dates Condition Status Problem Mixed hyperlipidemia E78.2 Active Problem Primary osteoarthritis of left knee M17.12 Active Problem Essential hypertension I10 Active Assessment Ingrown nail L60.0 Active Problem Allergic rhinitis, unspecified allergic rhinitis type J30.9 Active Problem Prediabetes R73.09 Active Medications Medication Code System Code Instructions Start Date End Date Status Dosage Pravastatin Sodium [facility] [address]-23 40 MG Orally Once a day 1 tablet Flonase [facility] [address]-86 50 MCG/DOSE Nasally 2 times a day 1 spray in each nostril Cetirizine HCl [facility] [address]-66 10 MG Orally Once a day 1 tablet Lisinopril-Hydrochlorothiazide [facility] [address]-40 20-25 MG Orally Once a day 1 tablet Procedures Procedure Coding System Code Date Office Visit, Est Pt., Level 2 CPT-4 79082 Apr 18, 2015 Vital Signs Date/Time: Apr 18, 2015 Temperature 97.0 F Weight 270.0 lbs Height 65 in BMI 44.93 Index Blood Pressure Diastolic 78 mmHg Blood Pressure Systolic 130 mmHg Results No Known Results Summary Purpose eClinicalWorks Submission
--- OUTSIDE RECORDS SUMMARY | 2018-08-31 09:23 | XMS REPORT ---
Author Author [facility] Address [address] [place] [address] Care Team Providers Care Garbage Stoker Name Role Phone [facility] Unavailable PROBLEMS Type Condition ICD9-CM Code LWC35-UG Code Onset Dates Condition Status SNOMED Code Problem Essential hypertension I10 Active 33020668 Problem Allergic rhinitis, unspecified allergic rhinitis type J30.9 Active 57549056 Problem Acute right-sided low back pain with right-sided sciatica M54.41 Active 448643753 Problem Occult blood positive stool R19.5 Active 15202337 Problem Mixed hyperlipidemia E78.2 Active 053229818 Problem Prediabetes R73.09 Active 8760922 Problem Primary osteoarthritis of left knee M17.12 Active 950889876 Problem BMI 40.0-44.9, adult Z68.41 Active 569292238 ALLERGIES Substance Reaction Event Type Date Status Aspirin Unknown Drug Allergy Apr, Active ENCOUNTERS Encounter Location Date Diagnosis [place] [id number] [place] [address]35- 2760 Oct, [place] [address] [place] [id number] [place] [address] 67162- 6297 September, Essential hypertension I10 [place] [address] [place] [id number] [place] [address] 33643- 6733 Apr, Essential hypertension I10 ; Mixed hyperlipidemia E78.2 ; Prediabetes R73.09 ; Occult blood positive stool R19.5 and BMI 40.0-44.9, adult Z68.41 [place] [address] [place] [id number] [place] [address] 95306- 7164 Dec, Acute right-sided low back pain with right-sided sciatica M54.41 [place] [address] [place] [id number] [place] [address] 56157- 5331 Nov, Essential hypertension I10 [place] [address] [id number] [place] [address] 57365- 4129 Aug, Essential hypertension I10 ; Mixed hyperlipidemia E78.2 ; Prediabetes R73.09 ; BMI 40.0-44.9, adult Z68.41 ; Weight loss counseling, encounter for Z71.3 and Occult blood positive stool R19.5 [place] [address] [address] Jul, Eustachian tube dysfunction, bilateral H69.[address] [address] Apr, Well woman exam with routine gynecological exam Z01.419 [place] [address] [address]- [address]2 Mar, [place] [address] [address] Mar, Essential hypertension I10 ; Mixed hyperlipidemia E78.2 and Screening for colon cancer Z12.11 [place] [address] 0[address]- 5254 Mar, Essential hypertension I10 ; Mixed hyperlipidemia E78.2 and Screening for colon cancer Z12.11 [place] [address] [place] [id number] [place] [address] 51093- 2449 Jul, Essential hypertension I10 ; Acute maxillary sinusitis, recurrence not specified J01.00 ; Mixed hyperlipidemia E78.2 and Allergic rhinitis, unspecified allergic rhinitis type J30.9 [place] [address] [place] [id number] [place] [address] 31306- 8681 May, [place] [address] [address]- [address] May, Ingrowing right great toenail L60.0 [place] [address] [address]- [address] Apr, Ingrown nail L60.0 [facility] [address] [address] Mar, Ingrowing toenail with infection L60.0 [facility] [address] [address] 16 Jan, 2015 Hypercalcemia 275.42 [place] [address] [place] [id number] [place] [address]- 1944 Dec, Hypercalcemia 275.42 [place] [address] [place] [address] 18877- 9698 Dec, Acute renal insufficiency 593.9 [place] [address] [place] [address] 23965- 6498 Nov, [place] [address] [place] [address] 86297- 8555 Nov, Acute renal insufficiency 593.9 and Prediabetes 790.29 [place] [address] [address] Nov, Other and unspecified hyperlipidemia 272.4 and Essential hypertension, benign 401.1 [place] [address] [address] Oct, Dysuria 788.1 ; Osteoarthritis of left knee 715.96 ; Hyperlipidemia 272.4 ; Essential hypertension, benign 401.1 and Urinary tract infection 599.0 [place] [address] [address] Oct, [place] [address] [place] [address] 66262- 9784 Oct, Other and unspecified hyperlipidemia 272.4 and Essential hypertension, benign 401.1 [place] [address] [address] 14 Aug, 2014 [place] [address] [place] [address] 38038- 0788 Aug, [facility] [place] [facility] [address] [id number] [place] [address]- 8626 Jul, [facility] [place] [facility] [address] [id number] [place] [address]- 2097 Jul, [facility] [place] [facility] [address] [id number] [place] [address] Jul, [facility] [place] [facility] [address] [id number] [place] [address]- 9975 Jul, [facility] [place] [facility] [address] [id number] [place] [address]- 2409 Jul, [facility] [place] [facility] [address] [id number] [place] [address]- 6426 Jul, [facility] [place] [facility] [address] [id number] [place] [address]- 5477 Jun, [facility] [place] [facility] [address] [id number] [place] [address]- 8815 Jun, [facility] [place] [facility] [address] [id number] [place] [address]- 4899 May, [facility] [place] [facility] [address] [id number] [place] [address]- 1435 May, [facility] [place] [facility] [address] [id number] [place] [address]- 1608 May, [facility] [place] [facility] [address] [id number] [place] [address]- 1201 May, [facility] [place] [facility] [address] [id number] [place] [address]- 6739 Nov, [facility] [place] [facility] [address] [id number] [place] [address]- 8287 Nov, [facility] [place] [facility] [address] [id number] [place] [address]- 6215 Oct, [facility] [place] [facility] [address] [id number] [place] [address]- 4953 Oct, [facility] [address] [id number] [place] [address]- 1005 September, [facility] [address] [id number] [place] [address] September, [facility] [address] [id number] [place] [address]- 6155 September, [facility] [address] [id number] [place] [address]- 7277 September, [facility] [address] [id number] [place] [address] September, [facility] [address] [id number] [place] [address]- 8949 September, [facility] [address] [id number] [place] [address]- 7358 September, [facility] [address] [id number] [place] [address]- 9310 Aug, [facility] [address] [id number] [place] [address]- 5372 Aug, [facility] [address] [id number] [place] [address]- 6050 Aug, [facility] [place] [facility] [address] [id number] [place] [address]- 4449 Aug, [facility] [address] [id number] [place] [address]- 2229 Aug, [facility] [place] [facility] [address] [id number] [place] [address]- 5693 Aug, [facility] [place] [facility] [address] [id number] [place] [address]- 0472 May, [facility] [address] [id number] [place] [address] May, [facility] [id number] [address]- [address] May, [facility] [id number] [address]- 6567 May, [facility] [address] [id number] [address]- 7874 May, [facility] [address] [address]- 4852 May, [facility] [address] [id number] [address]- 5447 Jan, [facility] [address] [address]- 2610 Jan, [facility] [address] [address]- 5478 Dec, [facility] [address] [address]- 2579 Nov, [facility] [id number] [address]- 4712 Nov, [facility] [id number] [address]- 1522 Nov, [facility] [id number] [address]- 8232 Nov, IMMUNIZATIONS No Known Immunizations SOCIAL HISTORY Never Assessed REASON FOR VISIT Hypertension--[place]upp[place] PLAN OF CARE Activity Details Follow Up 6 Months Reason:HTN VITAL SIGNS Height 65 in 2017-04-01 Weight 267 lbs 2017-04-01 Temperature 98.2 degrees Fahrenheit 2017-04-01 Heart Rate 90 bpm 2017-04-01 Respiratory Rate 20 2017-04-01 BMI 44.43 kg/m2 2017-04-01 Blood pressure systolic 124 mmHg 2017-04-01 Blood pressure diastolic 82 mmHg 2017-04-01 MEDICATIONS Medication Instructions Dosage Frequency Start Date End Date Duration Status Pravastatin Sodium 40 mg Orally Once a day 1 tablet 24h 90 days Active Flonase 50 MCG/DOSE Nasally 2 times a day 1 spray in each nostril 12h Active Lisinopril-Hydrochlorothiazide 20-25 MG Orally Once a day 1 tablet 24h 90 days Active RESULTS No Results PROCEDURES Procedure Date Ordered Result Body Site COMPREHEN METABOLIC PANEL Apr 01, 2017 LIPID PANEL Apr 01, 2017 VENIPUNCT, ROUTINE* Apr 01, 2017 INSTRUCTIONS MEDICATIONS ADMINISTERED No Known Medications [...]
--- OUTSIDE RECORDS SUMMARY | 2018-08-31 09:23 | XMS REPORT ---
Author Author [facility] eClinical[employer] Address Unknown Phone Unavailable Care Team Providers Care Pressure Supervisor Name Role Phone [facility] CP Unavailable Allergies, Adverse Reactions, Alerts Substance Reaction Event Type Aspirin Info Not Available Drug Allergy Problems Problem Type Condition Code Onset Dates Condition Status Problem Mixed hyperlipidemia E78.2 Active Problem Primary osteoarthritis of left knee M17.12 Active Problem Essential hypertension I10 Active Assessment Ingrowing toenail with infection L60.0 Active Problem Allergic rhinitis, unspecified allergic rhinitis type J30.9 Active Problem Prediabetes R73.09 Active Medications Medication Code System Code Instructions Start Date End Date Status Dosage Flonase [facility] [address]-63 50 MCG/DOSE Nasally 2 times a day 1 spray in each nostril Bactrim DS [facility] [address]-19 800-160 MG Orally Once a day Mar 23, 2015 Apr 02, 2015 1 tablet Pravastatin Sodium [facility] [address]-46 40 MG Orally Once a day 1 tablet Cetirizine HCl [facility] [address]-20 10 MG Orally Once a day 1 tablet Lisinopril-Hydrochlorothiazide [facility] [address]-42 20-25 MG Orally Once a day 1 tablet Procedures Procedure Coding System Code Date Office Visit, Est Pt., Level 3 CPT-4 36064 Mar 23, 2015 Vital Signs Date/Time: Mar 23, 2015 Temperature 98.8 F Weight 268.6 lbs Height 65 in BMI 44.69 Index Blood Pressure Diastolic 82 mmHg Blood Pressure Systolic 126 mmHg Cardiac Monitoring Heart Rate 78 bpm Results No Known Results Summary Purpose eClinicalWorks Submission
--- OUTSIDE RECORDS SUMMARY | 2018-08-31 09:23 | XMS REPORT ---
Author Author [facility] [employer] Address Unknown Phone Unavailable Care Team Providers Care Nurse Advisor Name Role Phone [facility]IVERO CP Unavailable [...] Prediabetes R73.09 Active Medications No Known Medications Procedures Procedure Coding System Code Date LIPID PANEL CPT-4 48549 Mar 17, 2016 VENIPUNCT, ROUTINE* CPT-4 03435 Mar 17, 2016 COMPREHEN METABOLIC PANEL CPT-4 21199 Mar 17, 2016 TEST FOR BLOOD, FECES CPT-4 58738 Mar 17, 2016 Results Name Result Date Reference Range Unit Abnormality Flag ROUTINE VENIPUNCTURE Summary Purpose eClinicalWorks Submission
--- OUTSIDE RECORDS SUMMARY | 2018-08-31 09:23 | XMS REPORT | Continuity of Care Document ---
Author Author [facility] Address Unknown Phone Unavailable Allergies Active Description Code Type Severity Reaction Onset Reported/Identified Relationship to Patient Clinical Status Yes aspirin Drug Allergy N/A N/A 12/22/2012 Yes aspirin [id number] Drug Allergy Moderate GI UPSET/RINGIN 08/26/2018 Medications There is no data. Problems Date Dx Coded Attending Type Code Diagnosis Diagnosed By 12/22/2012 278.00 OBESITY 12/22/2012 401.1 HYPERTENSION, BENIGN ESSENTIAL 12/22/2012 V76.10 BREAST CANCER SCREENING 12/22/2012 V76.51 COLON CANCER SCREENING 12/22/2012 V77.1 SCREENING FOR DIABETES MELLITUS 12/22/2012 278.00 OBESITY 12/22/2012 401.1 HYPERTENSION, BENIGN ESSENTIAL 12/22/2012 V76.10 BREAST CANCER SCREENING 12/22/2012 V76.51 COLON CANCER SCREENING 12/22/2012 V77.1 SCREENING FOR DIABETES MELLITUS 12/22/2012 WEST RIVERO MD N 278.00 OBESITY 12/22/2012 WEST RIVERO MD N 401.1 HYPERTENSION, BENIGN ESSENTIAL 12/22/2012 WEST RIVERO MD N V76.10 BREAST CANCER SCREENING 12/22/2012 WEST RIVERO MD N V76.51 COLON CANCER SCREENING 12/22/2012 WEST RIVERO MD N V77.1 SCREENING FOR DIABETES MELLITUS 12/22/2012 WEST RIVERO MD N 278.00 OBESITY 12/22/2012 WEST RIVERO MD N 401.1 HYPERTENSION, BENIGN ESSENTIAL 12/22/2012 WEST RIVERO MD N V76.10 BREAST CANCER SCREENING 12/22/2012 WEST RIVERO MD N V76.51 COLON CANCER SCREENING 12/22/2012 WEST RIVERO MD N V77.1 SCREENING FOR DIABETES MELLITUS 12/22/2012 WEST RIVERO MD N 278.00 OBESITY 12/22/2012 WEST RIVERO MD N 401.1 HYPERTENSION, BENIGN ESSENTIAL 12/22/2012 WEST RIVERO MD V76.10 BREAST CANCER SCREENING 12/22/2012 WEST RIVERO MD V76.51 COLON CANCER SCREENING 12/22/2012 WEST RIVERO MD V77.1 SCREENING FOR DIABETES MELLITUS 12/22/2012 ECKERT DO, TAYLOR K 278.00 OBESITY 12/22/2012 ECKERT DO, TAYLOR K 401.1 HYPERTENSION, BENIGN ESSENTIAL 12/22/2012 ECKERT DO, TAYLOR K V76.10 BREAST CANCER SCREENING 12/22/2012 ECKERT DO, TAYLOR K V76.51 COLON CANCER SCREENING 12/22/2012 ECKERT DO, TAYLOR K V77.1 SCREENING FOR DIABETES MELLITUS 12/22/2012 WEST RIVERO MD 278.00 OBESITY 12/22/2012 WEST RIVERO MD 401.1 HYPERTENSION, BENIGN ESSENTIAL 12/22/2012 WEST RIVERO MD V76.10 BREAST CANCER SCREENING 12/22/2012 WEST RIVERO MD V76.51 COLON CANCER SCREENING 12/22/2012 WEST RIVERO MD V77.1 SCREENING FOR DIABETES MELLITUS 12/22/2012 CLAIRE ONEIL MD 278.00 OBESITY 12/22/2012 CLAIRE ONEIL MD 401.1 HYPERTENSION, BENIGN ESSENTIAL 12/22/2012 CLAIRE ONEIL MD V76.10 BREAST CANCER SCREENING 12/22/2012 CLAIRE ONEIL MD V76.51 COLON CANCER SCREENING 12/22/2012 CLAIRE ONEIL MD V77.1 SCREENING FOR DIABETES MELLITUS 12/22/2012 WEST RIVERO MD 278.00 OBESITY 12/22/2012 WEST RIVERO MD 401.1 HYPERTENSION, BENIGN ESSENTIAL 12/22/2012 WEST RIVERO MD V76.10 BREAST CANCER SCREENING 12/22/2012 WEST RIVERO MD V76.51 COLON CANCER SCREENING 12/22/2012 WEST RIVERO MD V77.1 SCREENING FOR DIABETES MELLITUS 12/22/2012 ECKERT DO, TAYLOR K 278.00 OBESITY 12/22/2012 ECKERT DO, TAYLOR K 401.1 HYPERTENSION, BENIGN ESSENTIAL 12/22/2012 ECKERT DO, TAYLOR K V76.10 BREAST CANCER SCREENING 12/22/2012 ECKERT DO, TAYLOR K V76.51 COLON CANCER SCREENING 12/22/2012 BABAR HENDRICKSON TAYLRO K V77.1 SCREENING FOR DIABETES MELLITUS 12/22/2012 WEST RIVERO MD N 278.00 OBESITY 12/22/2012 WEST RIVERO MD N 401.1 HYPERTENSION, BENIGN ESSENTIAL 12/22/2012 WEST RIVERO MD V76.10 BREAST CANCER SCREENING 12/22/2012 WEST RIVERO MD V76.51 COLON CANCER SCREENING 12/22/2012 WEST RIVERO MD V77.1 SCREENING FOR DIABETES MELLITUS 12/22/2012 WEST RIVERO MD N 278.00 OBESITY 12/22/2012 WEST RIVERO MD 401.1 HYPERTENSION, BENIGN ESSENTIAL 12/22/2012 WEST RIVERO MD V76.10 BREAST CANCER SCREENING 12/22/2012 WEST RIVERO MD V76.51 COLON CANCER SCREENING 12/22/2012 WEST RIVERO MD V77.1 SCREENING FOR DIABETES MELLITUS 02/02/2013 272.4 HYPERLIPIDEMIA 02/02/2013 WEST RIVERO MD N 272.4 HYPERLIPIDEMIA 02/02/2013 WEST RIVERO MD 272.4 HYPERLIPIDEMIA 02/02/2013 WEST RIVERO MD 272.4 HYPERLIPIDEMIA 02/02/2013 TAYLOR ECKERT DO K 272.4 HYPERLIPIDEMIA 02/02/2013 WEST RIVERO MD N 272.4 HYPERLIPIDEMIA 02/02/2013 CLAIRE ONEIL MD 272.4 HYPERLIPIDEMIA 02/02/2013 WEST RIVERO MD 272.4 HYPERLIPIDEMIA 02/02/2013 KARI ECKERT DOA K 272.4 HYPERLIPIDEMIA 02/02/2013 WEST RIVERO MD N 272.4 HYPERLIPIDEMIA 02/02/2013 WEST RIVERO MD N 272.4 HYPERLIPIDEMIA 11/23/2013 WEST RIVERO MD V15.05 PERSONAL HISTORY OF ALLERGY TO OTHER FOODS 11/23/2013 CLAIRE ONEIL MD V15.05 PERSONAL HISTORY OF ALLERGY TO OTHER FOODS 11/23/2013 WEST RIVERO MD V15.05 PERSONAL HISTORY OF ALLERGY TO OTHER FOODS 11/23/2013 TAYLOR ECKERT DO K V15.05 PERSONAL HISTORY OF ALLERGY TO OTHER FOODS 11/23/2013 WEST RIVERO MD V15.05 PERSONAL HISTORY OF ALLERGY TO OTHER FOODS 11/23/2013 WEST RIVERO MD V15.05 PERSONAL HISTORY OF ALLERGY TO OTHER FOODS 12/26/2013 CLAIRE ONEIL MD 372.30 CONJUNCTIVITIS UNSPECIFIED 12/26/2013 WEST RIVERO MD 372.30 CONJUNCTIVITIS UNSPECIFIED 12/26/2013 TAYLOR ECKERT DO 372.30 CONJUNCTIVITIS UNSPECIFIED 12/26/2013 WEST RIVERO MD 372.30 CONJUNCTIVITIS UNSPECIFIED 12/26/2013 WEST RIVERO MD 372.30 CONJUNCTIVITIS UNSPECIFIED 05/23/2014 TAYLOR ECKERT DO V72.31 DISTRIBUTION CENTER ADMINISTRATOR EXAM, ROUTINE 05/23/2014 WEST RIVERO MD V72.31 DISTRIBUTION CENTER ADMINISTRATOR EXAM, ROUTINE 05/23/2014 WEST RIVERO MD V72.31 DISTRIBUTION CENTER ADMINISTRATOR EXAM, ROUTINE 08/18/2014 WEST RIVERO MD N 461.9 SINUSITIS ACUTE 09/01/2014 CANDI RUIZ APRN Ot V76.12 09/06/2014 WEST RIVERO MD 473.9 UNSPECIFIED SINUSITIS (CHRONIC) 09/06/2014 WEST RIVERO MD 719.46 PAIN IN JOINT INVOLVING LOWER LEG 08/24/2018 LEV SAXENA DO Ot Z01.818 ENCOUNTER FOR OTHER PREPROCEDURAL EXAMIN 08/24/2018 CANDI RUIZ APRN Ot V76.12 OTH SCREEN MAMMO-MALIGN NEOPLASM OF MIRYAM 08/24/2018 LEV SAXENA DO Ot Z01.818 ENCOUNTER FOR OTHER PREPROCEDURAL EXAMIN 08/26/2018 LEV SAXENA DO Ot Z01.818 ENCOUNTER FOR OTHER PREPROCEDURAL EXAMIN 08/26/2018 LEV SAXENA DO Ot Z01.818 ENCOUNTER FOR OTHER PREPROCEDURAL EXAMIN 08/27/2018 LEV SAXENA DO Ot Z01.818 ENCOUNTER FOR OTHER PREPROCEDURAL EXAMIN Procedures Code [place] [address] HEMOCCULT 01/17/2013 69391 BMP 02/02/2013 66699 ROUTINE VENIPUNCTURE 02/02/2013 29339 ROUTINE VENIPUNCTURE 05/18/2013 05175 LIPID PANEL 05/18/2013 93283 ROUTINE VENIPUNCTURE 09/26/2013 87007 STREP A (IN-HOUSE) 09/26/2013 8195745 GFR CALC (RESULT ONLY) 09/26/2013 45786 CMP 09/26/2013 67472 LIPID PANEL 09/26/2013 28520 ROUTINE VENIPUNCTURE 10/04/2013 98818 A1C (RML) 10/05/2013 23728 MAMMOGRAM, SCREENING 05/23/2014 71783 HEMOCCULT 07/12/2014 43243 XRAY KNEE LEFT 3 VIEWS 09/06/2014 Results Test Result Range Comp. Metabolic Panel (14) - 03/17/16 08:48 Glucose, Serum 110 mg/dL 65-99 BUN 14 mg/dL 6-24 Creatinine, Serum 0.97 mg/dL 0.57-1.00 eGFR If NonAfricn Am 66 mL/min/1.73 >59 eGFR If Africn Am 76 mL/min/1.73 >59 BUN/Creatinine Ratio 14 9-23 Sodium, Serum 138 mmol/L 136-144 Potassium, Serum 4.6 mmol/L 3.5-5.2 Chloride, Serum 99 mmol/L 97-106 Carbon Dioxide, Total 25 mmol/L 18-29 Calcium, Serum 10.2 mg/dL 8.7-10.2 Protein, Total, Serum 6.8 g/dL 6.0-8.5 Albumin, Serum 4.3 g/dL 3.5-5.5 Globulin, Total 2.5 g/dL 1.5-4.5 A/G Ratio 1.7 1.1-2.5 Bilirubin, Total 0.5 mg/dL 0.0-1.2 Alkaline Phosphatase, S 102 IU/L 39-117 AST (SGOT) 24 IU/L 0-40 ALT (SGPT) 26 IU/L 0-32 Lipid Panel - 03/17/16 08:48 Cholesterol, Total 213 mg/dL 100-199 Triglycerides 183 mg/dL 0-149 HDL Cholesterol 34 mg/dL >39 VLDL Cholesterol Terence 37 mg/dL 5-40 LDL Cholesterol Calc 142 mg/dL 0-99 Comp. Metabolic Panel (14) - 09/26/16 09:49 Glucose, Serum 89 mg/dL 65-99 BUN 20 mg/dL 6-24 Creatinine, Serum 0.87 mg/dL 0.57-1.00 eGFR If NonAfricn Am 75 mL/min/1.73 >59 eGFR If Africn Am 86 mL/min/1.73 >59 BUN/Creatinine Ratio 23 9-23 Sodium, Serum 142 mmol/L 134-144 Potassium, Serum 4.3 mmol/L 3.5-5.2 Chloride, Serum 103 mmol/L 96-106 Carbon Dioxide, Total 25 mmol/L 18-29 Calcium, Serum 9.9 mg/dL 8.7-10.2 Protein, Total, Serum 6.7 g/dL 6.0-8.5 Albumin, Serum 4.3 g/dL 3.5-5.5 Globulin, Total 2.4 g/dL 1.5-4.5 A/G Ratio 1.8 1.2-2.2 Bilirubin, Total 0.6 mg/dL 0.0-1.2 Alkaline Phosphatase, S 100 IU/L 39-117 AST (SGOT) 23 IU/L 0-40 ALT (SGPT) 26 IU/L 0-32 Lipid Panel - 09/26/16 09:49 Cholesterol, Total 166 mg/dL 100-199 Triglycerides 188 mg/dL 0-149 HDL Cholesterol 38 mg/dL >39 VLDL Cholesterol Terence 38 mg/dL 5-40 LDL Cholesterol Calc 90 mg/dL 0-99 CMP - 04/01/17 10:00 GLUCOSE 124 mg/dL 65-99 UREA NITROGEN (BUN) 21 mg/dL 7-25 CREATININE 1.02 mg/dL 0.50-1.05 eGFR NON-AFR. MAURITIAN 61 mL/min/1.73m2 > OR=60 eGFR 71 mL/min/1.73m2 > OR=60 BUN/CREATININE RATIO NOT APPLICABLE (calc) 6-22 SODIUM 139 mmol/L 135-146 POTASSIUM 4.2 mmol/L 3.5-5.3 CHLORIDE 100 mmol/L 98-110 CARBON DIOXIDE 30 mmol/L 20-31 CALCIUM 10.2 mg/dL 8.6-10.4 PROTEIN, TOTAL 7.3 g/dL 6.1-8.1 ALBUMIN 4.6 g/dL 3.6-5.1 GLOBULIN 2.7 g/dL (calc) 1.9-3.7 ALBUMIN/GLOBULIN RATIO 1.7 (calc) 1.0-2.5 BILIRUBIN, TOTAL 1.0 mg/dL 0.2-1.2 ALKALINE PHOSPHATASE 90 U/L 33-130 AST 20 U/L 10-35 ALT 26 U/L 11-27 LIPID PANEL - 12/18/17 10:44 CHOLESTEROL, TOTAL 199 mg/dL <200 HDL CHOLESTEROL 41 mg/dL >50 TRIGLYCERIDES 110 mg/dL <150 LDL-CHOLESTEROL 136 mg/dL (calc) NRG CHOL/HDLC RATIO 4.9 (calc) <5.0 NON HDL CHOLESTEROL 158 mg/dL (calc) <130 CMP - 12/18/17 10:44 GLUCOSE 98 mg/dL 65-99 UREA NITROGEN (BUN) 17 mg/dL 7-25 CREATININE 0.87 mg/dL 0.50-1.05 eGFR NON-AFR. MAURITIAN 74 mL/min/1.73m2 > OR=60 eGFR 86 mL/min/1.73m2 > OR=60 BUN/CREATININE RATIO NOT APPLICABLE (calc) 6- SODIUM 141 mmol/L 135-146 POTASSIUM 4.2 mmol/L 3.5-5.3 CHLORIDE 105 mmol/L 98-110 CARBON DIOXIDE 29 mmol/L 20-31 CALCIUM 10.0 mg/dL 8.6-10.4 PROTEIN, TOTAL 7.0 g/dL 6.1-8.1 ALBUMIN 4.4 g/dL 3.6-5.1 GLOBULIN 2.6 g/dL (calc) 1.9-3.7 ALBUMIN/GLOBULIN RATIO 1.7 (calc) 1.0-2.5 BILIRUBIN, TOTAL 0.7 mg/dL 0.2-1.2 ALKALINE PHOSPHATASE 82 U/L 33-130 AST 24 U/L 10-35 ALT 24 U/L 11-27 CBC - 12/18/17 10:44 WHITE BLOOD CELL COUNT 6.3 Thousand/uL 3.8-10.8 RED BLOOD CELL COUNT 5.01 Million/uL 3.80-5.10 HEMOGLOBIN 14.5 g/dL 11.7-15.5 HEMATOCRIT 45.2 % 35.0-45.0 MCV 90.2 fL 80.0-100.0 MCH 28.9 pg 27.0-33.0 MCHC 32.1 g/dL 32.0-36.0 RDW 13.0 % 11.0-15.0 PLATELET COUNT 301 Thousand/uL 140-400 MPV 10.2 fL 7.5-12.5 ABSOLUTE NEUTROPHILS 3648 cells/uL 4004-1925 ABSOLUTE LYMPHOCYTES 1903 cells/uL 850-3900 ABSOLUTE MONOCYTES 510 cells/uL 200-950 ABSOLUTE EOSINOPHILS 189 cells/uL 15-500 ABSOLUTE BASOPHILS 50 cells/uL 0-200 NEUTROPHILS 57.9 % NRG LYMPHOCYTES 30.2 % NRG MONOCYTES 8.1 % NRG EOSINOPHILS 3.0 % NRG BASOPHILS 0.8 % NRG Encounters ACCT No. Visit Date/Time Discharge Status Pt. Type Provider Facility Loc./Unit Complaint [id number] 09/06/2014 16:08:00 09/06/2014 23:59:59 CLS Outpatient WEST RIVERO MD [id number] 07/12/2014 17:11:00 07/12/2014 23:59:59 CLS Outpatient WEST RIVERO MD [id number] 05/23/2014 16:54:00 05/23/2014 23:59:59 CLS Outpatient TAYLOR ECKERT DO [id number] 05/18/2014 16:18:00 05/18/2014 23:59:59 CLS Outpatient WEST RIVERO MD [id number] 12/26/2013 09:19:00 12/26/2013 23:59:59 CLS Outpatient CLAIRE ONEIL MD [id number] 11/23/2013 16:14:00 11/23/2013 23:59:59 CLS Outpatient WEST RIVERO MD [id number] 10/04/2013 16:23:00 10/04/2013 23:59:59 CLS Outpatient TAYLOR ECKERT DO [id number] 09/26/2013 09:24:00 09/26/2013 23:59:59 CLS Outpatient WEST RIVERO MD [id number] 05/18/2013 07:45:00 05/18/2013 23:59:59 CLS Outpatient WEST RIVERO MD [id number] 05/17/2013 08:58:00 05/17/2013 23:59:59 CLS Outpatient WEST RIVERO MD [id number] 02/02/2013 11:12:00 Document Registration [id number] 01/17/2013 09:58:00 Document Registration [id number] 09/27/2016 08:35:00 Document Registration [id number] 08/17/2018 10:40:00 08/17/2018 23:59:59 CLS Outpatient WEST RIVERO MD [facility] [id number] 12/18/2017 09:40:00 Document Registration [id number] 04/01/2017 09:00:00 Document Registration [id number] 08/26/2018 14:30:00 08/26/2018 14:54:00 DIS Outpatient LEV SAXENA DO [facility] PREOP COLO [id number] 06/12/2014 10:20:00 06/12/2014 23:59:59 CLS Outpatient CANDI RUIZ AMMUNITION ASSEMBLY I LABORER [facility] RAD SCREENING [id number] 08/31/2018 12:15:00 PEN Preadmit LEV SAXENA DO [facility] ENDO OCCULT POSITIVE [id number] 06/12/2014 10:20:28 ACT Document Registration [id number] 03/18/2016 08:41:00 Document Registration
--- OUTSIDE RECORDS SUMMARY | 2018-08-31 09:23 | XMS REPORT ---
Author Author WEST RIVERO [facility] eClinicalWorks Address Unknown Phone Unavailable Care Team Providers Care Cardroom Worker Name Role Phone WEST RIVERO CP Unavailable Allergies No Known Allergies Problems Problem Type Condition ICD-9 Code Onset Dates Condition Status Problem Hyperlipidemia 272.4 Active Problem Osteoarthritis of left knee 715.96 Active Problem Prediabetes 790.29 Active Problem Obesity, unspecified 278.00 Active Assessment Hypercalcemia 275.42 Active Problem Allergic rhinitis 477.9 Active Problem Essential hypertension, benign 401.1 Active Medications No Known Medications Procedures Procedure Coding System Code Date VENIPUNCT, ROUTINE* CPT-4 96331 Feb 14, 2015 Results No Known Results Summary Purpose eClinicalWorks Submission
[2018-08-31 09:30] VITALS: BP 133/79
[2018-08-31] MEDS ORDERED: LACTATED RINGERS 1,000 ML IV ONE (09:34)
[2018-08-31] MEDS ORDERED: LACTATED RINGERS 1,000 ML IV PRN (09:45)
[2018-08-31] MEDS ORDERED: MIDAZOLAM 2 MG/2 ML (VERSED) VIAL ONE (09:59)
[2018-08-31] MEDS ORDERED: PROPOFOL INJECTION 50 ML IV ONE ×2 (09:59→11:13)
[2018-08-31] MEDS ORDERED: GLYCOPYRROLATE 0.2 MG/ML (ROBINUL) 2 ML VIAL ONE (10:32)
--- NOTE | 2018-08-31 10:58 | Progress Note-Pre Operative ---
Pre-Operative Progress Note H&P Reviewed The H&P was reviewed, patient examined and no changes noted. Date Seen by Provider: Aug 31, 2018 Time Seen by Provider: 10:54 Date H&P Reviewed: Aug 31, 2018 Time H&P Reviewed: 10:54 Pre-Operative Diagnosis: occult + stool LEV SAXENA DO Aug 31, 2018 10:58
--- NOTE | 2018-08-31 11:55 | Progress Note-Post Operative ---
Post-Operative Progess Note Surgeon (s)/Pipeline Engineer (s) Surgeon LEV SAXENA DO Pipeline Engineer: na Pre-Operative Diagnosis occult + stool Post-Operative Diagnosis sigmoid polyp x 2 Procedure & Operative Findings Date of Procedure 08/31/18 Procedure Performed/Findings colonoscopy with hot bx polypectomy and snare polypectomy Anesthesia Type per mda Estimated Blood Loss Estimated blood loss (mL): none Specimens/Packing Specimens Removed sigmoid polyps x 2 LEV SAXENA DO Aug 31, 2018 11:55
--- NOTE | 2018-08-31 11:56 | Discharge Inst-Simple/Standard ---
Discharge Inst-Standard Patient Instructions/Follow Up Plan of Care/Instructions/FU: 2 weeks [place] Activity as Tolerated: Yes Discharge Diet: Regular Diet LEV SAXENA DO Aug 31, 2018 11:56
[2018-08-31 12:25] VITALS: BP 113/56
[2018-08-31 12:50] VITALS: BP 115/59
[2018-08-31 13:00] VITALS: BP 113/56
--- NOTE | 2018-08-31 15:12 | Anesthesia-General Post-Op ---
MAC Patient Condition Mental Status/LOC: Same as Preop Cardiovascular: Satisfactory Nausea/Vomiting: Absent Respiratory: Satisfactory Pain: Controlled Complications: Absent Post Op Complications Complications None Follow Up Care/Instructions Patient Instructions None needed. Anesthesiology Discharge Order Discharge Order Patient is doing well, no complaints, stable vital signs, no apparent adverse anesthesia problems. No complications reported per nursing. JONATHAN RUANO CRNA Aug 31, 2018 15:12
--- NOTE | 2018-08-31 16:19 | OPERATIVE REPORT ---
DATE OF SERVICE: 08/31/2018 PREOPERATIVE DIAGNOSIS: Occult positive stool. POSTOPERATIVE DIAGNOSIS: Sigmoid colon polyps x 2. PROCEDURES: Colonoscopy with snare polypectomy x 1 and hot biopsy polypectomy x 1. SURGEON: Lev Avendaño DO. ANESTHESIA: Per MDA. ESTIMATED BLOOD LOSS: None. COMPLICATIONS: None. INDICATIONS: The patient is a 58-year-old female with occult positive stool. She understands risks and benefits of the procedure and wished to proceed with procedure. Consent was signed in the chart. PROCEDURE: The patient was taken to the endoscopy suite and placed in the left lateral recumbent position. Timeout was performed. Digital rectal exam was performed. No palpable polyps, masses or ulcerations. Some slight internal hemorrhoidal disease. Scope was inserted in the rectum and advanced all the way to the cecum with minimal difficulty. Prep was adequate with lots of irrigation and suction. The scope was then slowly retracted back. There were no polyps, masses or ulcerations within the cecum, ascending, transverse and descending colon. In the sigmoid colon, there was a small polyp, which hot biopsy polypectomy was performed. Scope was continuously retracted back where a slightly larger polyp was present, which snare polypectomy was performed. Scope had to be retracted back to remove the polyp. The scope was reinserted into the anus and advanced up to the location where the snare polypectomy performed. Scope was then slowly retracted back. There were no other polyps, masses or ulcerations within the remainder of the sigmoid and in the rectum. Once in the rectum, the scope was also retroflexed noting no other pathology except for internal hemorrhoids. Scope was returned to its normal position and slowly withdrawn until completely removed. The patient tolerated procedure well without any complications. She was taken to the recovery room in stable condition. RECOMMENDATIONS: The patient will need a repeat colonoscopy in 5 years. If any issues before that, she will be seen at that time. The patient will follow up in 2 weeks to discuss pathology results. Job ID: [id number] DocumentID: [id number] Dictated Date: 08/31/2018 11:59:19 Conservation Biology Professor Date: 08/31/2018 16:18:17 Dictated By: LEV AVENDAÑO DO
== END 2018-08-31 13:00 | disposition home or self-care (01) ==
LOC: ENDO 09:17
PROVIDERS: ATTEND Surgery
DX: D12.5 Benign neoplasm of sigmoid colon (principal); K64.8 Other hemorrhoids; I10 Essential (primary) hypertension; K21.9 Gastro-esophageal reflux disease without esophagitis; E66.01 Morbid (severe) obesity due to excess calories; Z68.42 Body mass index [BMI] 45.0-49.9, adult; Z87.891 Personal history of nicotine dependence; Z79.84 Long term (current) use of oral hypoglycemic drugs; Z79.899 Other long term (current) drug therapy

== ENCOUNTER → 2019-03-16 | Outpatient (CLI) | payer BC ==
--- NOTE | 2019-03-16 11:02 | Diagnostic Imaging Report ---
INDICATION: Routine screening. COMPARISON: Comparison is made with prior mammograms from 06/12/2014 and 01/19/2013. 2-D and 3-D bilateral screening mammography was performed. The current study was also evaluated with a Computer Aided Detection (CAD) system. 3-D tomosynthesis was also performed and reviewed. FINDINGS: Scattered fibroglandular densities are identified bilaterally. A biopsy clip in the outer right breast is again noted. Numerous circumscribed masses in both breasts appear to be fairly stable. Calcifications in the left breast have increased since prior exam from 2014. Additional views would be recommended. These appear to be predominately in the medial aspect of the left breast. These appear to be mostly inferior on the MLO view. Right breast is unremarkable. Axillae are unremarkable. IMPRESSION: Increasing left breast calcifications when compared with prior exam from 2014. Additional views are recommended. ACR BI-RADS Category 0: Incomplete. (Needs additional imaging evaluation). Result letter will be mailed to the patient. Note: At least 10% of breast cancer is not imaged by mammography. Dictated by: Dictated on workstation # [id number]
== END ==
LOC: RAD 10:08
PROVIDERS: ATTEND Nurse Practitioner Family
DX: Z12.31 Encounter for screening mammogram for malignant neoplasm of breast (principal)
CPT/HCPCS: 77067

== ENCOUNTER → 2019-04-07 | Outpatient (CLI) | payer BC ==
--- NOTE | 2019-04-07 18:13 | Diagnostic Imaging Report ---
EXAMINATION: Diagnostic left mammogram. INDICATION: Abnormal mammogram. The screening mammogram performed on 03/16/2019 noted that in the interval since the previous exam of 06/12/2014, a number of microcalcifications have developed in the inferomedial aspect of the left breast. The current study was also evaluated with a Computer Aided Detection (CAD) system. 3-D tomosynthesis was also performed and reviewed. FINDINGS: The compression/magnification views of these microcalcifications reveals that they are numerous but technically indeterminate. There is a sizable cluster of calcifications in this area, and I would recommend that a stereotactic biopsy be performed to exclude malignancy. IMPRESSION: 1. A stereotactic biopsy would be recommended for further evaluation of the indeterminate microcalcifications in the left breast. 2. These results will be discussed with Pauly Horvath APRN. ACR BI-RADS Category 4: Suspicious abnormality. Result letter will be mailed to the patient. Note: At least 10% of breast cancer is not imaged by mammography. Dictated on workstation # [id number]
== END ==
LOC: RAD 09:07
PROVIDERS: ATTEND Nurse Practitioner Family
DX: R92.8 Other abnormal and inconclusive findings on diagnostic imaging of breast (principal); R92.0 Mammographic microcalcification found on diagnostic imaging of breast

== ENCOUNTER → 2019-05-13 | Outpatient (CLI) | payer BC ==
[~2019-05-13] VITALS: Ht 162.6 cm; Wt 118.2 kg
[~2019-05-13] MED LIST changes: +LIDOCAINE 1% INJ 20 ML 20 ML VIAL INJ ONE; +LIDOCAINE 1% INJ 20 ML 20 ML VIAL ONE
--- NOTE | 2019-05-17 15:24 | Diagnostic Imaging Report ---
Left breast stereotactic biopsy INDICATION: Abnormal mammogram The diagnostic mammogram performed on 04/07/2019 noted that a number of microcalcifications have developed in the inferomedial aspect of the left breast in the interval since the prior exam of 06/12/2014. These calcifications were felt to be technically indeterminate and stereotactic biopsy was recommended. Following aseptic preparation of the skin and administration of local anesthesia, stereotactic biopsy of a group of microcalcifications in the area of concern was performed. The specimen radiograph shows that there are numerous calcifications evident. Consequently, I do feel the area in question has been adequately sampled. A stereotactic clip was inserted into the biopsy site. The post procedure mammogram images show the clip is in the region of the calcifications in question. The patient tolerated the procedure well and was dismissed in good condition. IMPRESSION: There has been a successful stereotactic biopsy of the left breast. A final pathology report is pending. Dictated by: Dictated on workstation # [id number]
== END ==
LOC: RAD 08:00
PROVIDERS: ATTEND Family Medicine
DX: R92.0 Mammographic microcalcification found on diagnostic imaging of breast (principal); R92.8 Other abnormal and inconclusive findings on diagnostic imaging of breast
CPT/HCPCS: 19081; 88305

== ENCOUNTER → 2020-03-23 | Outpatient (CLI) | payer BC ==
[~2020-03-23] VITALS: Ht 162 cm; Wt 122.0 kg
[~2020-03-23] MED LIST changes: +CATHETER FLUSH 10 ML SYR IV PRN; -LIDOCAINE 1% INJ 20 ML 20 ML VIAL INJ ONE; -LIDOCAINE 1% INJ 20 ML 20 ML VIAL ONE; +REGADENOSON 0.4 MG/5 ML SYR (LEXISCAN) IV ONE
[2020-03-23 09:13] VITALS: BP 177/90
[2020-03-23 09:30] VITALS: BP 141/88
--- NOTE | 2020-03-27 14:26 | STRESS TEST ---
DATE OF SERVICE: 03/23/2020 RESTING AND POST REGADENOSON TECHNETIUM-99M TETROFOSMIN SPECT CT IMAGING ORDERING PHYSICIAN: Dr. Jack. PRIMARY PHYSICIAN: Dr. Jack. CLINICAL DIAGNOSES: Shortness of breath. Baseline images were carried out after injection of 10.02 mCi of technetium-99m Tetrofosmin. This was followed by 0.4 mg regadenoson and 32.7 mCi of technetium-99m Tetrofosmin for stress imaging. The electrocardiogram showed sinus rhythm at baseline. The electrocardiogram did not change significantly with the regadenoson infusion. The patient tolerated the procedure well. Review of images at rest and following stress indicates a transient anteroseptal perfusion defect. Gated images show normal global left ventricular systolic function with normal regional wall motion. Left ventricular ejection fraction is calculated to be 49%. Left ventricular end diastolic volume is 70 mL. TID is absent (1.1). CONCLUSIONS: 1. This study is indicative of a small to moderate amount of anteroseptal ischemia. 2. No regional wall motion abnormality. 3. Left ventricular ejection fraction is calculated to be 49%. Job ID: [id number] DocumentID: [id number] Dictated Date: 03/27/2020 12:06:40 Hairspring Truer Date: 03/27/2020 14:25:34 Dictated By: DESTIN VELÁSQUEZ MD, MA, FACP, FACC,
== END ==
LOC: CARD 08:00
PROVIDERS: ATTEND Family Medicine
DX: R06.02 Shortness of breath (principal)
CPT/HCPCS: 78452; 93017; A9502

== ENCOUNTER → 2020-04-03 | Outpatient (CLI) | payer BC ==
[~2020-04-03] MED LIST changes: -CATHETER FLUSH 10 ML SYR IV PRN; -REGADENOSON 0.4 MG/5 ML SYR (LEXISCAN) IV ONE
== END ==
LOC: RT 09:49
PROVIDERS: ATTEND Family Medicine
DX: R06.02 Shortness of breath (principal)
CPT/HCPCS: 94060; 94726; 94729

== ENCOUNTER 2020-05-01 12:00 | Day surgery (SDC) | payer BC ==
[~2020-05-01] VITALS: Ht 163 cm; Wt 123.0 kg
[2020-05-01] VITALS (10 sets, daily range): BP systolic 108–142; BP diastolic 65–96
[2020-05-01 10:25] LABS: HEMOGLOBIN 15.4 g/dL (11.5-16.0); MEAN PLATELET VOLUME 9.5 fL (9.0-12.2); WHITE BLOOD COUNT 8.5 10^3/uL (4.3-11.0)
[2020-05-01 10:47] LABS: PROTHROMBIN TIME PATIENT 13.3 SEC (12.2-14.7)
[2020-05-01 10:56] LABS: ALBUMIN 4.4 GM/DL (3.2-4.5); BILIRUBIN,TOTAL 0.7 MG/DL (0.1-1.0); CALCIUM 10.4 MG/DL (8.5-10.1); CREATININE SERUM 1.05 MG/DL (0.60-1.30); POTASSIUM 3.8 MMOL/L (3.6-5.0); TOTAL PROTEIN 7.7 GM/DL (6.4-8.2)
[~2020-05-01 12:00] MED LIST changes: +ANAS1TAB50 PO; +HEParin (CATH LAB) 2,000 ML IV ONE; +HYDR25TA4 PO; +LIDOCAINE 1% INJ 20 ML 20 ML VIAL ONE; +MIDAZOLAM 5 MG/5 ML (VERSED) VIAL ONE; +NS IV 1000 ML 1,000 ML IV SCH; +NS IV 1000 ML 1,000 ML ONE; +fentaNYL INJECTION 100 MCG/2 ML AMP ONE
--- NOTE | 2020-05-01 12:40 | Cardiac Procedure Note-CS/ASA ---
Pre-Procedure Note Pre-Op Procedure Note H&P Reviewed The H&P was reviewed, patient examined and no changes noted. Date H&P Reviewed: May 01, 2020 Time H&P Reviewed: 11:30 Conscious Sedation Pre-Proced Time 11:30 ASA Score 3 For ASA 3 and 4: Consider anesthesia and medical clearance. Also, for patients with a history of failed moderate sedation consider anesthesia. Airway Lungs Heart ASA score ASA 1: a normal healthy patient ASA 2: a patient with a mild systemic disease (mid diabetes, controlled hypertension, obesity ASA 3: a patient with a severe systemic disease that limits activity (angina, COPD, prior Myocardial infarction) ASA 4: a patient with an incapacitating disease that is a constant threat to life (CHF, renal failure) ASA 5: a moribund patient not expected to survive 24 hrs. (ruptured aneurysm) ASA 6: a declared brain- patient whose organs are being harvested. For emergent operations, add the letter E after the classification Mallampati Classification Grade 2 Sedation Plan Analgesia, Amnesia, Plan communicated to team members, Discussed options with patient/fam, Discussed risks with patient/fam The patient is an appropriate candidate to undergo the planned procedure, sedation, and anesthesia. The patient immediately re-assessed prior to indication. EDSTIN VELÁSQUEZ MD FACP FAC CCDS May 01, 2020 12:40
[2020-05-01] MEDS ORDERED: NS IV 1000 ML 1,000 ML IV SCH (12:41)
[2020-05-01] MEDS ORDERED: PATIENT MAY USE OWN MEDS, ALL PO SCH (12:45)
--- NOTE | 2020-05-01 12:45 | Discharge Inst-Cardiology ---
Discharge Inst-Cardiac Discharge Medications Continued Medications: Anastrozole (Arimidex) 1 Mg Tablet 1 MG PO DAILY, TAB Hydrochlorothiazide (Hydrochlorothiazide) 25 Mg Tablet 25 MG PO DAILY, TAB Pravastatin Sodium (Pravastatin Sodium) 40 Mg Tablet 40 MG PO DAILY, TAB Discontinued Medications: Metformin HCl (Metformin HCl) 500 Mg Tablet 500 MG PO BID, TAB Patient Instructions Patient Instructions: Hold METFORMIN until the morning of 05/04/20, then resume previous home dose DESTIN VELÁSQUEZ MD FACP FAC CCDS May 01, 2020 12:45
--- NOTE | 2020-05-01 12:46 | Discharge Inst-Post CATH ---
Discharge Inst-CATH/EP Post Cardiac Cath/EP D/C Inst Follow Up/Plan F/u with Dr Chua in 2 weeks ACTIVITY * Go Home directly and rest. * Limit activity of the leg (or wrist if it was used) for 7 days including aerobics, swimming, jogging, bicycling, etc. * Restrict stair-climbing for 7 days if possible, if not, climb up with your n on-cath leg, then bring together on the same step. * Avoid lifting, pushing, pulling or excessive movement of the affected ex tremity for 7 days. * Customary sexual activity may be resumed after 2 days-use caution not to use a position that strains or causes pain to the affected extremity. * No driving for 24 hours. * NO SMOKING. * Avoid straining for bowel movements for 7 days. * Gentle walking on level ground is allowed. * Returning to work will depend on the type of procedure and the results. Your doctor will discuss this with you. CALL YOUR DOCTOR FOR ANY OF THE FOLLOWING: *If bleeding from the puncture site occurs- Apply gentle pressure to site with clean cloth and call your doctor or EMS. * If a knot or lump forms under the skin, increases in size, or causes pain. * If bruising appears to be worsening or moving further down your leg instead of disappearing. * Temperature above 101 F. CARE OF YOUR GROIN INCISION; * Bruising or purple discoloration of the skin near the puncture site is common. * You may shower only, no bathtub bathing for 5 days. Be careful to avoid slipping as your leg may feel stiff. * If a closure device was used on your femoral artery, please see the attached guide regarding care of the device and your leg. * Leave dressing on FOR 24 hours. CARE OF YOUR WRIST INCISION; * Bruising or purple discoloration of the skin near the puncture site is common. * You may shower. * DO NOT submerge wrist. * Leave dressing on FOR 24 hours. DESTIN CHUA MD FACP FAC CCDS May 01, 2020 12:45
--- NOTE | 2020-05-01 13:22 | CARDIAC CATHETERIZATION ---
DATE OF SERVICE: 05/01/2020 CARDIAC CATHETERIZATION REPORT The patient is a 59-year-old lady who has chest discomfort and had multiple coronary risk factors. A recent myocardial perfusion imaging study was indicative of ischemia. Cardiac catheterization was carried out after having obtained an informed consent. DESCRIPTION OF PROCEDURE: She was brought to the cardiac catheterization laboratory in a fasting state. Right groin was prepared and draped in the usual sterile fashion. Lidocaine 1% was used for local anesthesia. Modified Seldinger technique was used to advance a 5-[place] sheath in right femoral artery. A 5-[place] JL4 catheter for left angiography, 5-[place] JR4 catheter was used for right coronary angiography, 5-[place] pigtail catheter was used for left heart catheterization and left ventricular angiography. Angiography of the right femoral artery had been carried out through the sheath at the beginning the procedure. At the end of the procedure, Mynx was used to achieve hemostasis. She tolerated the procedure well. HEMODYNAMICS: Left ventricular end-diastolic pressure following coronary angiography was 10 mmHg. There is no significant pressure gradient on pullback across the aortic valve. Ascending aortic pressure was 126/81 with a mean of 97 mmHg. CORONARY ANGIOGRAPHY: Left main coronary artery, left anterior descending artery, left circumflex artery, right coronary artery do not exhibit angiographically significant coronary artery disease. Right coronary artery is dominant. LEFT VENTRICULAR ANGIOGRAPHY: Left ventricular angiography was carried out in the right anterior oblique projection. Global left ventricular systolic function normal. No regional wall motion abnormalities seen in this view. Ejection fraction is estimated to be approximately 60%. CONCLUSIONS: 1. No angiographically significant coronary artery disease on this study. 2. Normal global left ventricular systolic function with ejection fraction approximately 60%. 3. Normal left ventricular end-diastolic pressure. DISCUSSION AND RECOMMENDATIONS: Based on results of the study, the myocardial perfusion imaging study appears to have been false positive. Appears appropriate to continue risk factor modification. Outpatient followup is advised. Job ID: [id number] DocumentID: [id number] Dictated Date: 05/01/2020 12:49:17 Home Health Care Social Worker Date: 05/01/2020 13:22:18 Dictated By: DESTIN VELÁSQUEZ MD, MA, FACP, FACC,
== END 2020-05-01 15:25 | disposition home or self-care (01) ==
LOC: CATH 12:00
PROVIDERS: ATTEND Internal Medicine Cardiovascular Disease
DX: R07.89 Other chest pain (principal); E66.01 Morbid (severe) obesity due to excess calories; Z68.42 Body mass index [BMI] 45.0-49.9, adult; I10 Essential (primary) hypertension; E11.9 Type 2 diabetes mellitus without complications; R06.02 Shortness of breath; R94.39 Abnormal result of other cardiovascular function study; R06.09 Other forms of dyspnea; E78.2 Mixed hyperlipidemia; Z79.84 Long term (current) use of oral hypoglycemic drugs; Z79.82 Long term (current) use of aspirin; Z79.899 Other long term (current) drug therapy; Z88.5 Allergy status to narcotic agent; Z87.891 Personal history of nicotine dependence
CPT/HCPCS: 80053; 80061; 85027; 85610; 85730; 87081; 93458; C1760; C1894; 36415

== ENCOUNTER → 2022-02-14 | Outpatient (CLI) | payer BC ==
[~2022-02-14] MED LIST changes: -HEParin (CATH LAB) 2,000 ML IV ONE; -LIDOCAINE 1% INJ 20 ML 20 ML VIAL ONE; -LISI-552 PO; +LISI20TA26 PO; -MIDAZOLAM 5 MG/5 ML (VERSED) VIAL ONE; -NS IV 1000 ML 1,000 ML IV SCH; -NS IV 1000 ML 1,000 ML ONE; -fentaNYL INJECTION 100 MCG/2 ML AMP ONE
== END ==
LOC: CARD 11:59
PROVIDERS: ATTEND Internal Medicine Cardiovascular Disease
DX: R00.2 Palpitations (principal)
CPT/HCPCS: 93225; 93226; 93306